=== PATIENT | male | born 1950 | race Caucasian/White ===

== ENCOUNTER → 2017-09-09 10:00 | Outpatient (CLI) | payer MEDICARE, SELFPAY ==
[2017-09-09 10:57] LABS: Hematocrit 35.1 % (40-54); Hemoglobin 12.2 g/dl (13.0-16.5); Mean Corp Hgb Conc 34.8 g/gl (32-36); Mean Corpuscular Volume 83.6 fL (80-94); Mean Platelet Vol. 8.8 fl (6.2-12.0); Platelet Count 247 K/mm3 (150-450); RBC Distribution Width CV 13.4 % (11.6-14.6); RBC Distribution Width SD 39.9 fl (35.1-43.9); White Blood Count 9.4 K/mm3 (4.4-11.0)
[2017-09-09 11:07] LABS: Scan Indicated on CBC? Y/N NO
[2017-09-09 11:16] LABS: Albumin, Serum 3.1 g/dL (3.2-5.0); BUN 42 mg/dL (7-18); BUN/Creat Ratio 13.9 RATIO (10-20); Chloride 102 mmol/L (98-107); Creatinine, Serum 3.02 mg/dL (0.70-1.30); EST Glomerular Filtration Rate 22 mL/min (>60); Est Glom Filt Rate - Afr Amer 27 mL/min (>60); Glucose 285 mg/dL (74-106); Phosphorus 3.2 mg/dL (2.5-4.9); Potassium 4.5 mmol/L (3.5-5.1); Sodium Level 136 mmol/L (136-145)
[2017-09-09 12:11] LABS: Creat.Clear Total Volume 2600 mL; Creatinine Clearance 29 ml/min (100-200); Creatinine Urine 48.8 mg/dL (NO RANGE EST.); EST Glomerular Filtration Rate 22 mL/min (>60); Est Glom Filt Rate - Afr Amer 27 mL/min (>60)
[2017-09-09 13:05] LABS: 24HR. UA Prot. Total Volume 2600 mL; Urine Protein (24 Hour) 125.6 mg/dL (<11.9)
== END ==
PROVIDERS: Family Provider Family Medicine; PCP Family Medicine; Visit Provider Internal Medicine Nephrology
DX: N18.4 Chronic kidney disease, stage 4 (severe) (principal); R80.9 Proteinuria, unspecified
CPT/HCPCS: 36415; 80069; 82575; 84156; 85027

== ENCOUNTER → 2018-01-06 09:15 | Outpatient (CLI) | payer MEDICARE, SELFPAY ==
[2018-01-06 10:18] LABS: Hematocrit 36.1 % (40-54); Hemoglobin 12.1 g/dl (13.0-16.5); Mean Corp Hgb Conc 33.5 g/gl (32-36); Mean Corpuscular Volume 83.6 fL (80-94); Mean Platelet Vol. 9.1 fl (6.2-12.0); Platelet Count 242 K/mm3 (150-450); RBC Distribution Width CV 13.1 % (11.6-14.6); RBC Distribution Width SD 39.6 fl (35.1-43.9); Red Blood Count 4.32 M/mm3 (4.6-6.2); Scan Indicated on CBC? Y/N NO; White Blood Count 9.2 K/mm3 (4.4-11.0)
[2018-01-06 11:03] LABS: Albumin, Serum 3.1 g/dL (3.2-5.0); BUN 39 mg/dL (7-18); BUN/Creat Ratio 12.6 RATIO (10-20); Calcium,Total 8.7 mg/dL (8.5-10.1); Chloride 103 mmol/L (98-107); EST Glomerular Filtration Rate 21 mL/min (>60); Est Glom Filt Rate - Afr Amer 26 mL/min (>60); Glucose 255 mg/dL (74-106); Phosphorus 3.3 mg/dL (2.5-4.9); Potassium 5.1 mmol/L (3.5-5.1); Sodium Level 136 mmol/L (136-145)
[2018-01-06 11:06] LABS: PTHIN 50.5 pg/mL (18.4-80.1)
[2018-01-06 11:08] LABS: Vitamin D,25 Hydroxy 19.5 ng/mL (29.95-100.01)
== END ==
PROVIDERS: Family Provider Family Medicine; PCP Family Medicine; Visit Provider Internal Medicine Nephrology
DX: E55.9 Vitamin D deficiency, unspecified (principal); N18.4 Chronic kidney disease, stage 4 (severe)
CPT/HCPCS: 36415; 80069; 82306; 83970; 85027

== ENCOUNTER → 2018-04-11 09:56 | Outpatient (CLI) | payer MEDICARE, SELFPAY ==
[2018-04-11 10:37] LABS: Hematocrit 37.3 % (40-54); Hemoglobin 12.6 g/dl (13.0-16.5); Mean Corp Hgb Conc 33.8 g/gl (32-36); Mean Corpuscular Hgb 28.2 pg (27.0-32.0); Mean Corpuscular Volume 83.4 fL (80-94); Platelet Count 272 K/mm3 (150-450); RBC Distribution Width CV 13.5 % (11.6-14.6); RBC Distribution Width SD 40.2 fl (35.1-43.9); Red Blood Count 4.47 M/mm3 (4.6-6.2); Scan Indicated on CBC? Y/N NO; White Blood Count 10.2 K/mm3 (4.4-11.0)
[2018-04-11 11:20] LABS: Albumin, Serum 3.4 g/dL (3.2-5.0); BUN 41 mg/dL (7-18); BUN/Creat Ratio 12.9 RATIO (10-20); Chloride 102 mmol/L (98-107); Creatinine, Serum 3.17 mg/dL (0.70-1.30); EST Glomerular Filtration Rate 21 mL/min (>60); Est Glom Filt Rate - Afr Amer 25 mL/min (>60); Glucose 156 mg/dL (74-106); Phosphorus 2.9 mg/dL (2.5-4.9); Potassium 4.5 mmol/L (3.5-5.1); Sodium Level 135 mmol/L (136-145)
[2018-04-11 11:21] LABS: PTHIN 43.5 pg/mL (18.4-80.1)
== END ==
PROVIDERS: Family Provider Family Medicine; PCP Family Medicine; Referring Provider Internal Medicine Nephrology; Visit Provider Internal Medicine Nephrology
DX: N18.4 Chronic kidney disease, stage 4 (severe) (principal)
CPT/HCPCS: 36415; 80069; 83970; 85027

== ENCOUNTER → 2018-07-10 07:55 | Outpatient (CLI) | payer MEDICARE, SELFPAY ==
[2018-07-10 08:20] LABS: Hemoglobin 12.4 g/dl (13.0-16.5); Mean Corp Hgb Conc 33.5 g/gl (32-36); Mean Corpuscular Hgb 27.7 pg (27.0-32.0); Mean Corpuscular Volume 82.8 fL (80-94); Mean Platelet Vol. 8.9 fl (6.2-12.0); Platelet Count 251 K/mm3 (150-450); RBC Distribution Width CV 13.5 % (11.6-14.6); Red Blood Count 4.47 M/mm3 (4.6-6.2)
[2018-07-10 08:22] LABS: Scan Indicated on CBC? Y/N NO
[2018-07-10 08:55] LABS: Albumin, Serum 3.2 g/dL (3.2-5.0); BUN 35 mg/dL (7-18); Calcium,Total 9.1 mg/dL (8.5-10.1); Chloride 106 mmol/L (98-107); Creatinine, Serum 2.92 mg/dL (0.70-1.30); EST Glomerular Filtration Rate 23 mL/min (>60); Est Glom Filt Rate - Afr Amer 28 mL/min (>60); Glucose 87 mg/dL (74-106); Phosphorus 3.6 mg/dL (2.5-4.9); Potassium 4.5 mmol/L (3.5-5.1); Sodium Level 138 mmol/L (136-145)
[2018-07-10 09:05] LABS: PTHIN 38.1 pg/mL (18.4-80.1)
== END ==
PROVIDERS: Family Provider Family Medicine; PCP Family Medicine; Referring Provider Internal Medicine Nephrology; Visit Provider Internal Medicine Nephrology
DX: N18.4 Chronic kidney disease, stage 4 (severe) (principal)
CPT/HCPCS: 36415; 80069; 83970; 85027

== ENCOUNTER → 2018-08-20 09:57 | Outpatient (CLI) | payer MEDICARE, SELFPAY ==
[2018-08-20 12:08] LABS: Albumin, Serum 2.8 g/dL (3.2-5.0); BUN 50 mg/dL (7-18); BUN/Creat Ratio 17.2 RATIO (10-20); Calcium,Total 8.7 mg/dL (8.5-10.1); Chloride 105 mmol/L (98-107); Creatinine, Serum 2.91 mg/dL (0.70-1.30); EST Glomerular Filtration Rate 23 mL/min (>60); Est Glom Filt Rate - Afr Amer 28 mL/min (>60); Glucose 182 mg/dL (74-106); Phosphorus 3.2 mg/dL (2.5-4.9); Potassium 4.6 mmol/L (3.5-5.1); Sodium Level 139 mmol/L (136-145)
== END ==
PROVIDERS: Family Provider Family Medicine; PCP Family Medicine; Referring Provider Internal Medicine Nephrology; Visit Provider Internal Medicine Nephrology
DX: N18.4 Chronic kidney disease, stage 4 (severe) (principal)
CPT/HCPCS: 36415; 80069

== ENCOUNTER → 2018-10-07 09:45 | Outpatient (CLI) | payer MEDICARE, SELFPAY ==
[2018-10-07 10:57] LABS: Hematocrit 37.4 % (40-54); Hemoglobin 11.9 g/dl (13.0-16.5); Mean Corp Hgb Conc 31.8 g/gl (32-36); Mean Corpuscular Hgb 26.8 pg (27.0-32.0); Mean Corpuscular Volume 84.2 fL (80-94); Mean Platelet Vol. 8.7 fl (6.2-12.0); Platelet Count 249 K/mm3 (150-450); RBC Distribution Width CV 14.2 % (11.6-14.6); RBC Distribution Width SD 44.3 fl (35.1-43.9); Red Blood Count 4.44 M/mm3 (4.6-6.2); White Blood Count 9.4 K/mm3 (4.4-11.0)
[2018-10-07 10:59] LABS: Scan Indicated on CBC? Y/N NO
[2018-10-07 11:23] LABS: Albumin, Serum 2.7 g/dL (3.2-5.0); BUN 28 mg/dL (7-18); BUN/Creat Ratio 10.9 RATIO (10-20); Calcium,Total 8.7 mg/dL (8.5-10.1); Chloride 106 mmol/L (98-107); Creatinine, Serum 2.57 mg/dL (0.70-1.30); EST Glomerular Filtration Rate 27 mL/min (>60); Est Glom Filt Rate - Afr Amer 32 mL/min (>60); Glucose 224 mg/dL (74-106); Potassium 4.3 mmol/L (3.5-5.1); Sodium Level 138 mmol/L (136-145)
[2018-10-07 11:26] LABS: PTHIN 28.1 pg/mL (18.4-80.1)
== END ==
PROVIDERS: Family Provider Family Medicine; PCP Family Medicine; Referring Provider Internal Medicine Nephrology; Visit Provider Internal Medicine Nephrology
DX: N18.4 Chronic kidney disease, stage 4 (severe) (principal)
CPT/HCPCS: 36415; 80069; 83970; 85027

== ENCOUNTER → 2019-01-30 09:47 | Outpatient (CLI) | payer MEDICARE, SELFPAY ==
[2019-01-30 10:19] LABS: Hematocrit 38.8 % (40-54); Hemoglobin 12.7 g/dL (13.0-16.5); Mean Corp Hgb Conc 32.7 g/dL (32-36); Mean Corpuscular Hgb 27.5 pg (27.0-32.0); Mean Corpuscular Volume 84.2 fL (80-94); Mean Platelet Vol. 8.7 fl (6.2-12.0); Platelet Count 257 K/mm3 (150-450); RBC Distribution Width CV 14.4 % (11.6-14.6); RBC Distribution Width SD 43.9 fl (35.1-43.9); Red Blood Count 4.61 M/mm3 (4.6-6.2)
[2019-01-30 10:39] LABS: Protein:Creat Ratio 10336 mg/g CRE (0-200)
[2019-01-30 10:58] LABS: Albumin, Serum 2.3 g/dL (3.2-5.0); BUN 31 mg/dL (7-18); BUN/Creat Ratio 9.4 RATIO (10-20); Calcium,Total 8.7 mg/dL (8.5-10.1); Chloride 108 mmol/L (98-107); EST Glomerular Filtration Rate 20 mL/min (>60); Est Glom Filt Rate - Afr Amer 24 mL/min (>60); Glucose 221 mg/dL (74-106); Phosphorus 3.4 mg/dL (2.5-4.9); Potassium 4.8 mmol/L (3.5-5.1); Sodium Level 134 mmol/L (136-145)
[2019-01-30 11:05] LABS: PTHIN 48.8 pg/mL (18.4-80.1)
== END ==
PROVIDERS: Family Provider Family Medicine; PCP Family Medicine; Referring Provider Internal Medicine Nephrology; Visit Provider Internal Medicine Nephrology
DX: E11.22 Type 2 diabetes mellitus with diabetic chronic kidney disease (principal); N18.4 Chronic kidney disease, stage 4 (severe); D63.1 Anemia in chronic kidney disease
CPT/HCPCS: 36415; 80069; 82570; 83970; 84156; 85027

== ENCOUNTER → 2019-03-12 11:27 | Outpatient (CLI) | payer MEDICARE, SELFPAY ==
[2019-03-12 10:30] VITALS: BMI 33.0
[2019-03-12 13:05] LABS: Albumin, Serum 2.2 g/dL (3.2-5.0); BUN 36 mg/dL (7-18); BUN/Creat Ratio 10.1 RATIO (10-20); Calcium,Total 8.4 mg/dL (8.5-10.1); Chloride 110 mmol/L (98-107); Creatinine, Serum 3.56 mg/dL (0.70-1.30); EST Glomerular Filtration Rate 18 mL/min (>60); Est Glom Filt Rate - Afr Amer 22 mL/min (>60); Glucose 183 mg/dL (74-106); Potassium 4.8 mmol/L (3.5-5.1); Sodium Level 142 mmol/L (136-145)
== END ==
PROVIDERS: Family Provider Family Medicine; PCP Family Medicine; Referring Provider Internal Medicine Nephrology; Visit Provider Internal Medicine Nephrology
DX: N18.4 Chronic kidney disease, stage 4 (severe) (principal)
CPT/HCPCS: 36415; 80069

== ENCOUNTER → 2019-03-19 11:47 | Outpatient (CLI) | payer MEDICARE, SELFPAY ==
[2019-03-12 10:30] VITALS: BMI 33.0
--- NOTE | 2019-03-19 12:09 | PCM.CR.HP2 ---
CR - History & Physical - General Arrival date:: 03/19/19 Arrival time:: 11:50 Date of Referral:: 03/12/19 Date of CR Evaluation:: 03/19/19 Referring Physician: DR. ALTAGRACIA BERRIOS Primary Diagnosis: CABG - History of Present Cardiac Event Onset Date: Enter Onset Date of cardiac illnesses in Comment field below Acute Myocardial Infarction within 12 months:: Yes - 2000 Coronary Artery Bypass Graft:: Yes - 08/08/2018 PTCA or coronary stenting:: Yes - 2000 PCI W/CORONARY STENT X 2 Type of Symptoms:: FELT NOTHING, SUPERVISOR OF COMMUNICATIONS AT [facility] SHOWED HIM ONE CORONARY ARTERY WAS SO NARROWN SURPRISED HE FELT NO PAIN. Were there any complications?: HAD ISSUES WITH GETTING BLOOD PRESSURES BACK UP, TRANSFUSED TWO PINTS BLOOD - Medications Home Medications: Ambulatory Orders Medication Instructions Recorded Aspirin [Aspirin, Baby] 81 mg PO DAILY@0800 07/06/16 Clopidogrel Bisulfate [Plavix] 75 mg PO DAILY 07/06/16 doxazosin 4 mg tablet 4 mg PO QHS tab 01/16/18 cholecalciferol (vitamin D3) 1,000 1,000 unit PO DAILY 02/06/19 unit (25 mcg) tablet metoprolol succinate ER 100 mg 100 mg PO .COMPLEX 02/06/19 tablet,extended release 24 hr pantoprazole 20 mg tablet,delayed 20 mg PO DAILY 02/06/19 release glimepiride 1 mg tablet 1 mg PO .COMPLEX 03/10/19 amlodipine 2.5 mg tablet 2.5 mg PO DAILY #30 tab 03/12/19 lisinopril 5 mg tablet 2.5 mg PO QDAY tab 03/12/19 omega-3 fatty acids 1,000 mg 1,000 mg PO DAILY 03/12/19 capsule rosuvastatin 10 mg tablet 10 mg PO DAILY 03/12/19 sitagliptin 25 mg tablet 25 mg PO DAILY 03/12/19 Atorvastatin Calcium [Lipitor] 80 mg PO QHS 03/19/19 Fenofibric Acid (Choline) 135 mg PO 03/19/19 [Trilipix] Magnesium Oxide [Mag-Oxide 400 mg PO 03/19/19 Magnesium] Sitagliptin Phosphate [Januvia] 25 mg PO DAILY 03/19/19 - Allergies Allergies/Adverse Reactions: Allergies Sulfa (Sulfonamide Antibiotics) Allergy (Severe, Verified 03/12/19 10:30) Rash clonidine Adverse Reaction (Severe, Verified 03/12/19 10:30) sedation - Sleep Disorder Evaluation Hx of Sleep Apnea: Yes Do you snore loudly (louder than talking or can be heard through closed doors)?: Yes Do you often feel tired/ fatigued/ sleepy during daytime?: Yes Has anyone observed you stop breathing during sleep?: Yes History of Hypertension (for STOP score): Yes STOP Results: Positive Advanced Directives - Advanced Directives Power of Program Trainer: Yes Living Will: Yes Advance Directives Information Provided: No Advance Directives on File: No - PATIENT IS NOT SURE IF THEY ARE ON FILE OR NOT. DNR Order?:: No - MOLST See MOLST form: No Past Medical History - Past Medical Illness Medical History: Past Medical History (Last Reviewed 03/12/19 @ 10:34 by Lizzie Phillips) Mixed hyperlipidemia (Chronic) E78.2 CKD (chronic kidney disease) stage 4, GFR 15-29 ml/min (Chronic) N18.4 Type 2 diabetes mellitus (Chronic) E11.9 Essential hypertension (Chronic) I10 Atherosclerotic heart disease of [place] coronary artery without angina pectoris (Chronic) I25.10 History of left heart catheterization (LHC) Onset Date: ~2000 Z98.890 PCI/stent x2 2000 TIA (transient ischemic attack) G45.9 - Past Surgical History Surgical History: Past Surgical History (Last Reviewed 03/12/19 @ 10:34 by Lizzie Phillips) History of coronary artery bypass surgery (Chronic) Onset Date: ~08/08/18 Z95.1 CABG x3- HILTON to LAD, SVG to PDA, SVG to Diag 1 History of toe surgery Z98.890 Lt great toe repair History of tonsillectomy Z90.89 - Family History Summary Family History: Family History (Last Reviewed 03/12/19 @ 10:34 by Lizzie Phillips) Mother Hypertension Father Congestive heart failure Social History - Smoking History Smoking Status: Former smoker Years Smokin Packs Smoked per Day: 2 Hx Smoking Cessation Date: 1992 Hx Tobacco Use: Yes Hx Smoking Exposure: No - Alcohol Use Alcohol Usage: No - Substance Abuse Hx Substance Use: No - Occupation Occupation (List type of work in comments):: Retired - Hobbies, Recreation, Social Activities Hobbies: Watch TV, Other - tv Recreational Activities: I am able to engage in most, but not all activities Social Environment - Status Marital Status: - Current Living Arrangements Living Environment:: Spouse - Children How many children do you have?: 2 Do any of your children live nearby?: Yes - GERRY AND KATHY - Safety Do you feel safe in your surroundings?: Yes - Assistance Do you need any assistance at home?: NONE Review of Systems - Review of Systems Hints: Right click = Denies (Slash). Left click = Reports ([place]) Review of Present Symptoms: Reports: Shortness of Breath with Exertion - AT TIMES CAN FEEL THE PRESSURE OF SHORTNESS OF BREATH DEPENDING ON THE ACTIVITY INVOLVED, Wound Healing, Fatigue, Appetite - Normal, Appetite - Special Diet - NO SATURATED FATS, NO SODIUM, LOWER ADDED SUGAR INTAKE. Denies: Shortness of Breath at Rest, Operative Discomfort, Angina, Dizziness/Lightheadedness - Pain Is Patient Pain Free?: Yes Pain Location: none Pain Level: 0/10 Risk Factor Assessment - Chief Complaint Chief Complaint: PATIENT IS A PLEASENT 68 YR OLD MALE PATIENT OF DR. BERRIOS WHO PRESENTS TO CARDIAC REHAB TODAY FOLLOWING RECENT CABG X 3 AT THE [facility] ON 08/08/2018. - Vital Signs Temperature: 98.7 F Respiratory Rate: 14 Pulse Ox: 95 Blood Pressure: 128/78 - Pulse Pulse Rate: 68 Pulse Rhythm: Regular - Hypertension How long have you been treated?: SINCE FIRST HEART ATTACK IF NOT BEFORE THAT 2000. Blood Pressure Sitting - Left Arm: 128/78 - Stress Stress: Recent - Blood Cholesterol/Lipids Total Cholesterol (mg/dL) Goal = less than 200 mg/dL: 0 - NOT AVAILABLE - Diabetes Diabetic History: Type II, Medication Dependent Nutrition Referral for Diabetes: Yes - Obesity Height: 5 ft 11 in Weight:: 232 lb 6.4 oz Weight in Pounds: 232.4 lbs Weight Source: Standing Scale Body Mass Index (BMI): 32.4 Nutritional Referral for Obesity: Yes - Physical Inactivity Physical Inactivity: None - SEDENTARY LIFESTYLE ONLY WALKS AROUND INSIDE THE HOUSE; MOWS GRASS ON RIDING TRACTOR - Risk Stratification Risk Guidelines: Lowest Risk: Risk Factor for Smoking, Risk Factor for Diabetes - CURRENT A1C OR GLUCOSE CHEISTRY NOT AVAILABLE, Risk Factor for Hypertension, Risk Factor for Depression, Moderate Risk: Risk Factor for Dyslipidemia, Highest Risk: Risk Factor for Obesity, Risk Factor for Sedentary Lifestyle - For Smoking Smoking Risk Guidelines: Smoking Low Risk: None or quit greater than 6 months ago. Smoking Moderate Risk: Smoker or quit 6 months or less ago. Smoking High Risk: Smoker - For Dyslipidemia Dyslipidemia Risk Guidelines: Low Risk: Moderate Risk: High Risk: 15-25% fat 25.1-29% fat >/= 30% fat. <7% sat fat 7-9% sat fat >9% sat fat. <150 mg chol 150-299 mg chol >/= 300 mg chol. LDL <100 LDL 100-129 LDL >/= 130. Chol/HDL ratio <5.0 Chol/HDL ratio 5.0-6.0 Chol/HDL ratio >6.0. Triglycerides <100 Triglycerides 100-149 Triglycerides >/= 150 - For Diabetes Mellitus Diabetes Risk Guidelines: Diabetes Low Risk: HgA1c <6.5% and/or FBG <120. Diabetes Moderate Risk: HgA1c 6.6-7.9% and/or FBG 120-180. Diabetes High Risk: HgA1c >/= 8% and/or FBG >180 - For Obesity/Overweight Obesity/Overweight Risk Guidelines: Obesity Low Risk: BMI <25.0. Obesity Moderate Risk: BMI 25-29.9. Obesity High Risk: BMI >/= 30.0 - For Hypertension Hypertension Risk Guidelines: Hypertension Low Risk: Systolic <120 and Diastolic <80. Hypertension Moderate Risk: Systolic 120-139 and Diastolic 80-89. Hypertension High Risk: Systolic >/= 140 and Diastolic >/= 90 - For Sedentary Lifestyle Sedentary Lifestyle Risk Guidelines: Sedentary Lifestyle Low Risk: >/= 1,500 kcal/week. Sedentary Lifestyle Moderate Risk: 700-1,499 kcal/week. Sedentary Lifestyle High Risk: < 700 kcal/week - For Depression Depression Risk Guidelines: Depression Low Risk: Not clinically depressed. Depression Moderate Risk: Mildly depressed. Depression High Risk: Clinically depressed - Family History Family History: Family History (Last Reviewed 03/12/19 @ 10:34 by Lizzie Phillips) Mother Hypertension Father Congestive heart failure Motivation - Motivation to Participate On a scale of 1 to 10, how prepared are you to commit to attending program?: 5 - DID PROGRAM AT [facility] DIDNT CARE FOR THE PROGRAM OR THE RN THERE. NOT REAL EXCITED ABOUT IT BUT WILL GIVE IT A TRY. What do you see as the benefits of succesfully completing the program? In other words, what do you hope to get out of participating in the program?: LOWERING THE BLOOD PRESSURE Are there issues you are dealing with that will interfere with completing the program?: INCREASE BLOOD PRESSURE Do you have a spouse or signficant other, family or friends who will help support you to complete the program?: YES
--- NOTE | 2019-03-19 12:10 | CR.ITP_ITS ---
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 Waist Circumference >35/Females >40/Males, Hypertension, Sedentary Lifestyle Cardiac Rehabilitation Goals: 1. Maintain the individual as the primary focus of care. 2. To improve the patient's quality of life. 3. Identification of cardiac risk factors and provide cardiac risk factor management. 4. Enhance the psychosocial status of the patient. 5. Reconditioning enough to allow the patient to resume customary activities. 6. Control symptoms of cardiac disease Scale for measuring improvement of personal goals: Enter appropriate number in Comments. 2 = Unchanged. 3 = Slightly Better. 4 = Moderate Improvement. 5 = Met my Goal Personal Goals: Initial Assessment: Improve energy level, Improve muscle strength and endurance, Improve diet and eating habits (eat healthier), Control risk factors (learn risk factor modification) Exercise - Initial Assessment - Visit Date of Eval: 03/19/19 - Stages of Change Stages of Change:: Contemplate, Action - Physician Prescribed Exercise Modalities: Treadmill - NOT CRAZY ABOUT TREADMILLS; HAS FREQUENT PANIC ATTACKS WITH INCREASED ELEVATION/SPEED DUE TO HIS CA AFTER STRESS TEST, Dharmesh Spear [employer], [employer] Frequency (days/week): 3x/week for 12 weeks [36 sessions] Duration (Minutes):: 30-45 Intensity: 60-80% age predicted maximum heart rate reserve METs - Progression: 0.5-1.0 MET, RPE 11-14 WEEK: 2.5 Target Heart Rate:: 99-129 - Hypertension Do any of the following apply?: Yes, Medication - Intervention Home Exercise/Activity Goal:: Moderate Exercise 30 min/day x 5 days/wk - Education Goals:: Warm-up, RPE DAT Scale, S/S, Safe Exercise, Self-Monitoring - Exercise Program Goals Exercise Program Goals: Aerobic Activity >30 min Nutrition - Initial Assessment - Program Goals Nutrition Program Goals: LDL <70. Total Cholesterol <200. HDL >45. Triglycerides <150. HgbA1C <7%. BMI <25 - Visit Date of Assessment:: 03/19/19 - Stages of Change Stages of Change:: Contemplate, Action - Lipids Total Cholesterol (mg/dL) Goal = less than 200 mg/dL: 0 - NOT AVAILABLE - Diabetes Diabetes:: Yes Insulin: No Non-Insulin Dependent?: No Do you monitor your blood sugar at home?: Yes - Weight Management Height: 5 ft 11 in Weight:: 232 lb 6.4 oz - Intervention Referral to dietitian:: Yes Referral to Diabetic Clinic:: Yes Will attend diet classes:: Yes - Education Gave educational materials for:: Signs & symptoms of hypoglycemia, Signs & symptoms of hyperglycemia, Relate diabetes to coronary artery disease, Healthy eating Tobacco - Initial Assessment - Program Goals Tobacco Program Goals: Complete smoking cessation. Attend education classes. Improve Knowledge Test score - Stage of Change Stages of Change:: Contemplate, Action - Learning Barriers Learning Barriers: Hearing, Vision - Family Support Do you have family support?: No - Tobacco Use Tobacco Use: Non-smoker Do you use smokeless tobacco?: No - Intervention Smoking Cessation Referral:: No Individual Education/Counseling:: No Education Schedule Given:: Yes - Education Attended class for:: Treating Heart Disease, How The Heart Works, What it means to have Heart Disease, How Coronary Artery Disease is Diagnosed, Heart Procedures, What Heart Medications Do, Risk Factors & Modifications, Living an Active Life, Nutrition, Emotions & Heart Disease, Stress Management & Relaxation, Sleep Disorders & Heart Disease Psychosocial - Initial Assess - Target Goals Target Goals: Assess presence or absence of depression. Using a valid screening tool, maximizes coping skills. Positive support system - Stages of Change Stages of Change:: Action - Psychosocial Test Tool Used:: HANDS Depression Questionnaire - Intervention PS - Interventions: Yes Attend Stress Management Classes, No Referral to Mental Health, No Referral to [facility] Case Management, No Referral to Physician, No Uses Stress Management Skills - Education Gave educational materials for:: Coping techniques, Signs & symptoms of depress ion, Stress management, Relaxation techniques - Patient/Program Goal Preventative Medication(s):: Aspirin, AI inhibitor, Clopidogrel, Beta rafael, Statin/lipid - Assistive Devices Assistive Devices:: None Fall Risk Assessed:: Yes Patient Health Questionnaire Initial Assessment 1. Little interest or pleasure in doing things: Several days 2. Feeling down, depressed, or hopeless: Not at all 3. Trouble falling or staying asleep, or sleeping too much: Not at all 4. Feeling tired or having little energy: Several days 5. Poor appetite or overeating: Not at all 6. Feeling bad about yourself -- or that you are a failure or have let yourself or your family down: Not at all 7. Trouble concentrating on things, such as reading the newspaper or watching television: Not at all 8. Moving or speaking so slowly that other people could have noticed. Or the opposite - being so fidgety or restless that you have been moving around a lot more than usual: Not at all 9. Thoughts that you would be better off , or of hurting yourself in some way: Not at all How difficult have these problems made it for you to do your work, take care of things at home, or get along with other people?: Not difficult at all Total Score: 2 CHANTALE-Q SV Test - Statements CAD is a disease of the arteries in the heart: False Examples of risk factors for heart disease: True Angina is chest pain or discomfort: True The benefits of resistance training include: True Eating more meat and dairy products: False Anti-platelet medications such as aspirin are important: True The only effective way to manage stress: False An exercise warm-up slowly increases heart rate: True Prepared, processed foods usually have high sodium: True Depression is common after a heart attack: I Don't Know The statin medications lower cholesterol: True To control blood pressure, lower the amount of sodium: True If someone gets chest discomfort during walking: False Transfats are partially hydrogenated vegetable oils: False Sleep apnea that is not treated increases the risk: I Don't Know To control cholesterol, one should become a vegetarian: False Someone knows if he/she is exercising at the right level: I Don't Know Diabetes cannot be prevented with exercise & health eating: False Stress is a large risk for heart attack: I Don't Know A diet that can help lower blood pressure is rich in: True - Total Score Total Correct Responses: 15 Self-Efficacy Initial Assessment We would like to know how confident you are in doing certain activities. Please select your confidence level for:: Select your confidence level for the following using the scale 1-10 where 1 is not at all confident and 10 is totally confident. Your score is the average of all 6 responses. Fatigue: How confident are you that you can keep the fatigue caused by your disease from interfering with the things you want to do? Select Number: 4 Physical Discomfort or Pain: How confident are you that you can keep the physical discomfort or pain of your disease from interfering with the things you want to do? Select Number: 4 Emotional Distress: How confident are you that you can keep the emotional distress caused by your disease from interfering with the things you want to do? Select Number: 5 Other Symptoms or Health Problems: How confident are you that you can keep other symptoms or health problems from interfering with the things you want to do? Select Number: 5 Different Tasks and Activities: How confident are you that you can do the different tasks and activities needed to manage your health condition so as to reduce your need to see a doctor? Select Number: 6 Medication: How confident are you that you can do things other than just taking medication to reduce how much your illness affects your everyday life? Select Number: 6 Total Score:: 5 Nutrition Survey - Nutrition Survey Instructions Scoring Instructions: Scoring is as follows: Yes = 1 points. No = 0 point. Patient score that is >/=12 is considered to be at potential nutritional risk and could benefit from a referral to a registered dietitian. - Nutrition Survey Initial Have you lost >10 lbs over the past 2 months without trying?: No Are you following a special diet at home for diabetes, low fat, or low salt?: Yes Are you interested in meeting with a dietitian for help understanding your diet?: Yes Do you eat less than 3 meals a day?: Yes Do you eat fatty meats (chapa, sausage, ribs, etc), fried foods, desserts, large amounts of salad dressings, margarine, butter, or cheese most days?: Yes Do you have food allergies? [Enter types in comment field]: No Do you eat in restaurants more than 3 times a week?: No Do you season food with salt, seasoning salt, or garlic salt?: No Do you used canned, boxed, frozen meals, or soups, seasoning packets?: Yes - DM TYPE II, EXTENSIVE CAD, RENAL DISEASE STAGE 4. Total Score:: 5
[2019-03-19 12:30] VITALS: BP 128/78; PULSE 68; RESP 14; TEMP 37.1; O2SAT 95; BMI 32.4
== END ==
PROVIDERS: Family Provider Family Medicine; PCP Family Medicine; Referring Provider Internal Medicine Cardiovascular Disease; Visit Provider Internal Medicine Cardiovascular Disease
DX: I25.10 Atherosclerotic heart disease of native coronary artery without angina pectoris (principal); E78.2 Mixed hyperlipidemia; E11.22 Type 2 diabetes mellitus with diabetic chronic kidney disease; N18.4 Chronic kidney disease, stage 4 (severe)

== ENCOUNTER 2019-04-01 09:52 | Outpatient (RCR) | payer MEDICARE, SELFPAY ==
[2019-03-19 12:30] VITALS: BMI 32.4
== END 2019-04-06 23:59 ==
LOC: DC 09:52
PROVIDERS: Family Provider Family Medicine; PCP Family Medicine; Visit Provider Internal Medicine Cardiovascular Disease
DX: E11.9 Type 2 diabetes mellitus without complications (principal); E78.2 Mixed hyperlipidemia; I25.10 Atherosclerotic heart disease of native coronary artery without angina pectoris; N18.4 Chronic kidney disease, stage 4 (severe); Z71.3 Dietary counseling and surveillance
CPT/HCPCS: G0108

== ENCOUNTER → 2019-04-02 13:31 | Outpatient (CLI) | payer MEDICARE, SELFPAY ==
[2019-03-12 10:30] VITALS: BMI 33.0
[2019-03-19 12:30] VITALS: BMI 32.4
--- NOTE | 2019-04-02 13:00 | ECHOCS_ITS ---
Reason For Study: S/P CABG Procedure This was a 2D Doppler, Color Flow transthoracic echocardiogram. The study was technically difficult. Due to diminished accoustic windows. Contrast injection was performed. Left Ventricle Normal LV size. Mild concentric left ventricular hypertrophy. Left ventricular systolic function is normal. The estimated ejection fraction is 55 %. Diastolic function is indeterminate. No regional wall motion abnormalities noted. Right Ventricle Normal RV size. Normal systolic function. Atria Normal left atrium. Normal right atrium. No doppler evidence for ASD. Mitral Valve There is no mitral annular calcification. Normal mitral valve. Trivial mitral valve insufficiency. Tricuspid Valve Normal tricuspid valve. Trivial tricuspid valve insufficiency. Unable to estimate RV systolic pressure/pulmonary artery pressure due to technically difficult study. Aortic Valve Trisinus/trileaflet aortic valve. Normal aortic valve. Pulmonic Valve The pulmonic valve is not well visualized. Great Vessels Normal sized aortic root. Pericardium/Pleural No pericardial effusion. Medication 22 gauge I.V. with prn adaptor inserted into right arm. Diluted definity 3.0ml given slow IV push to enhance endocardial definition. MMode/2D Measurements & Calculations LVIDd: 4.4 cm IVSd: 1.6 cm Ao root diam: 3.3 cm LVIDs: 2.6 cm LVPWd: 1.3 cm RVDd: 3.1 cm FS: 41.2 % LAV(MOD-bp): 46.3 ml LA A4 area: 17.4 cm2 LA dimension(2D): 4.1 cm LAV(MOD-bp) Indexed: 20.6 ml/m2 LAV(MOD-sp2): 46.8 ml LAV(MOD-sp4): 45.8 ml RA A4 area: 16.2 cm2 Time Measurements MV dec time: 0.21 sec Doppler Measurements & Calculations MV E max joseph: 74.4 cm/sec Lat Peak E' Joseph: 8.1 cm/sec Med Peak E' Joseph: 7.0 cm/sec MV A max joseph: 87.3 cm/sec E/E' lat: 9.2 E/E' med: 10.7 MV E/A: 0.85 Ao V2 max: 131.2 cm/sec LV V1 max: 104.4 cm/sec PA V2 max: 134.9 cm/sec Ao max P.9 mmHg LV V1 max P.4 mmHg Interpretation Summary The study was technically difficult. Contrast injection was performed. Left ventricular systolic function is normal. The estimated ejection fraction is 55 %. Mild concentric left ventricular hypertrophy. Trivial mitral valve insufficiency. Trivial tricuspid valve insufficiency. Unable to estimate RV systolic pressure/pulmonary artery pressure due to technically difficult study. Diastolic function is indeterminate. Ordering Physician: Jack Delgado Referring Physician: Santosh Tavarez Performed By: Hafas Lopez RDCS, RVT
== END ==
PROVIDERS: Family Provider Family Medicine; PCP Family Medicine; Referring Provider Internal Medicine Cardiovascular Disease; Visit Provider Internal Medicine Cardiovascular Disease
DX: Z95.1 Presence of aortocoronary bypass graft (principal); I25.10 Atherosclerotic heart disease of native coronary artery without angina pectoris; I12.9 Hypertensive chronic kidney disease with stage 1 through stage 4 chronic kidney disease, or unspecified chronic kidney disease; E11.22 Type 2 diabetes mellitus with diabetic chronic kidney disease; N18.4 Chronic kidney disease, stage 4 (severe); E78.2 Mixed hyperlipidemia
CPT/HCPCS: 93306; Q9957; A4216; C8929

== ENCOUNTER 2019-04-20 09:55 | Outpatient (RCR) | payer MEDICARE, SELFPAY ==
[2019-03-19 12:30] VITALS: BMI 32.4
== END 2019-05-07 23:59 ==
LOC: DC 09:55
PROVIDERS: Family Provider Family Medicine; PCP Family Medicine; Visit Provider Internal Medicine Cardiovascular Disease
DX: E11.9 Type 2 diabetes mellitus without complications (principal); E78.2 Mixed hyperlipidemia; I25.10 Atherosclerotic heart disease of native coronary artery without angina pectoris; N18.4 Chronic kidney disease, stage 4 (severe)
CPT/HCPCS: 36415; 80069; 83970; 85027; 97802

== ENCOUNTER → 2019-04-20 10:50 | Outpatient (CLI) | payer MEDICARE, SELFPAY ==
[2019-03-12 10:30] VITALS: BMI 33.0
[2019-03-19 12:30] VITALS: BMI 32.4
[2019-04-20 11:27] LABS: Hematocrit 38.1 % (40-54); Hemoglobin 12.2 g/dL (13.0-16.5); Mean Corpuscular Hgb 27.2 pg (27.0-32.0); Mean Platelet Vol. 8.8 fl (6.2-12.0); Platelet Count 217 K/mm3 (150-450); RBC Distribution Width CV 13.7 % (11.6-14.6); RBC Distribution Width SD 42.4 fl (35.1-43.9); Red Blood Count 4.48 M/mm3 (4.6-6.2); White Blood Count 12.2 K/mm3 (4.4-11.0)
[2019-04-20 11:35] LABS: Albumin, Serum 2.1 g/dL (3.2-5.0); BUN 39 mg/dL (7-18); Calcium,Total 8.7 mg/dL (8.5-10.1); Chloride 111 mmol/L (98-107); Creatinine, Serum 4.32 mg/dL (0.70-1.30); EST Glomerular Filtration Rate 15 mL/min (>60); Est Glom Filt Rate - Afr Amer 18 mL/min (>60); Glucose 196 mg/dL (74-106); Phosphorus 4.7 mg/dL (2.5-4.9); Potassium 4.8 mmol/L (3.5-5.1); Sodium Level 141 mmol/L (136-145)
== END ==
LOC: LAB.FUTURE 10:53 → LAB 10:56
PROVIDERS: Family Provider Family Medicine; PCP Family Medicine; Referring Provider Internal Medicine Nephrology; Visit Provider Internal Medicine Nephrology
DX: N18.4 Chronic kidney disease, stage 4 (severe) (principal)
CPT/HCPCS: 36415; 80069; 83970; 85027

== ENCOUNTER → 2019-05-04 10:00 | Outpatient (CLI) | payer MEDICARE, SELFPAY ==
[2019-03-19 12:30] VITALS: BMI 32.4
[2019-05-04 10:41] LABS: 24HR. UA Prot. Total Volume 2900 mL
[2019-05-04 10:42] LABS: Urine Protein (24 Hour) 500.8 mg/dL (<11.9)
[2019-05-04 11:16] LABS: Albumin, Serum 2.1 g/dL (3.2-5.0); BUN 42 mg/dL (7-18); BUN/Creat Ratio 8.6 RATIO (10-20); Calcium,Total 8.7 mg/dL (8.5-10.1); Chloride 105 mmol/L (98-107); Creatinine, Serum 4.86 mg/dL (0.70-1.30); EST Glomerular Filtration Rate 13 mL/min (>60); Est Glom Filt Rate - Afr Amer 15 mL/min (>60); Glucose 223 mg/dL (74-106); Phosphorus 5.5 mg/dL (2.5-4.9); Potassium 4.9 mmol/L (3.5-5.1); Sodium Level 137 mmol/L (136-145)
[2019-05-04 11:17] LABS: Creat.Clear Total Volume 2900 mL; Creatinine Clearance 17 ml/min (100-200); Creatinine Serum Creat 4.9 mg/dL (0.8-1.3); Creatinine Urine 40.1 mg/dL (NO RANGE EST.); EST Glomerular Filtration Rate 13 mL/min (>60); Est Glom Filt Rate - Afr Amer 15 mL/min (>60)
[2019-05-04 11:19] LABS: Vitamin D,25 Hydroxy 21.7 ng/mL (29.95-100.01)
== END ==
LOC: LAB.FUTURE 10:02 → LAB 05-05 06:39
PROVIDERS: Family Provider Family Medicine; PCP Family Medicine; Referring Provider Internal Medicine Nephrology; Visit Provider Internal Medicine Nephrology
DX: N18.4 Chronic kidney disease, stage 4 (severe) (principal); D63.1 Anemia in chronic kidney disease; E55.9 Vitamin D deficiency, unspecified
CPT/HCPCS: 36415; 80069; 82306; 82575; 84156

== ENCOUNTER 2019-05-25 09:00 | Outpatient (RCR) | payer MEDICARE, SELFPAY ==
[2019-03-19 12:30] VITALS: BMI 32.4
[2019-05-21 08:38] VITALS: BMI 32.4
== END 2019-05-25 23:59 | disposition home or self-care (01) ==
LOC: DC 09:00
PROVIDERS: Family Provider Family Medicine; PCP Family Medicine; Visit Provider Internal Medicine Cardiovascular Disease
DX: Z71.3 Dietary counseling and surveillance (principal); E11.22 Type 2 diabetes mellitus with diabetic chronic kidney disease; N18.4 Chronic kidney disease, stage 4 (severe); I25.10 Atherosclerotic heart disease of native coronary artery without angina pectoris; E78.2 Mixed hyperlipidemia
CPT/HCPCS: G0108

== ENCOUNTER → 2019-05-28 12:34 | Outpatient (CLI) | payer MEDICARE, SELFPAY ==
[2019-05-21 08:38] VITALS: BMI 32.4
[2019-05-28 13:28] LABS: Hematocrit 36.4 % (40-54); Hemoglobin 12.1 g/dL (13.0-16.5); Mean Corp Hgb Conc 33.2 g/dL (32-36); Mean Corpuscular Hgb 27.9 pg (27.0-32.0); Mean Corpuscular Volume 84.1 fL (80-94); Platelet Count 215 K/mm3 (150-450); RBC Distribution Width CV 13.6 % (11.6-14.6); RBC Distribution Width SD 42.6 fl (35.1-43.9); Red Blood Count 4.33 M/mm3 (4.6-6.2)
[2019-05-28 13:29] LABS: Mean Platelet Vol. 8.7 fl (6.2-12.0); Scan Indicated on CBC? Y/N NO
[2019-05-28 13:39] LABS: Albumin, Serum 2.2 g/dL (3.2-5.0); BUN 70 mg/dL (7-18); BUN/Creat Ratio 12.7 RATIO (10-20); Calcium,Total 8.9 mg/dL (8.5-10.1); Chloride 111 mmol/L (98-107); Creatinine, Serum 5.52 mg/dL (0.70-1.30); EST Glomerular Filtration Rate 11 mL/min (>60); Est Glom Filt Rate - Afr Amer 13 mL/min (>60); Glucose 96 mg/dL (74-106); Phosphorus 5.9 mg/dL (2.5-4.9); Potassium 4.7 mmol/L (3.5-5.1); Sodium Level 140 mmol/L (136-145)
== END ==
PROVIDERS: Family Provider Family Medicine; PCP Family Medicine; Referring Provider Internal Medicine Nephrology; Visit Provider Internal Medicine Nephrology
DX: N18.4 Chronic kidney disease, stage 4 (severe) (principal); D63.1 Anemia in chronic kidney disease; E55.9 Vitamin D deficiency, unspecified
CPT/HCPCS: 36415; 80069; 85027

== ENCOUNTER 2019-06-02 07:03 | Day surgery (SDC) | payer MEDICARE, SELFPAY ==
[2019-05-21 08:38] VITALS: BMI 32.4
--- NOTE | 2019-05-21 10:05 | HP_ITS ---
Intake Vital Signs 05/21/19 Body Mass Index (BMI) 32.4 05/21/19 Height 5 ft 11 in 05/21/19 Weight: 233 lb 4 oz 05/21/19 Body Mass Index (BMI) 32.5 05/21/19 Blood Pressure 172/80 H 05/21/19 Blood Pressure Location Rt brachial 05/21/19 Blood Pressure Position Sitting 05/21/19 Respiratory Rate 20 H 05/21/19 Pulse Rate 68 05/21/19 Pulse Ox 95 Intake Visit Reasons: PD CATH Chief Complaint: discuss PD caths Special Education Instructor Required: No Is patient in pain?: No Allergies Sulfa (Sulfonamide Antibiotics) Allergy (Severe, Verified 05/21/19 08:36) Rash clonidine Adverse Reaction (Severe, Verified 05/21/19 08:36) sedation Medications Aspirin [Aspirin, Baby] 81 mg PO DAILY@0800 07/06/16 [History Confirmed 05/21/19] Clopidogrel Bisulfate [Plavix] 75 mg PO DAILY 07/06/16 [History Confirmed 05/21/19] doxazosin 4 mg tablet 4 mg PO QHS tab 01/16/18 [History Confirmed 05/21/19] cholecalciferol (vitamin D3) 1,000 unit (25 mcg) tablet 1,000 unit PO DAILY 02/06/19 [History Confirmed 05/21/19] metoprolol succinate ER 100 mg tablet,extended release 24 hr 100 mg PO .COMPLEX 02/06/19 [History Confirmed 05/21/19] pantoprazole 20 mg tablet,delayed release 20 mg PO DAILY 02/06/19 [History Confirmed 05/21/19] glimepiride 1 mg tablet 1 mg PO .COMPLEX 03/10/19 [History Confirmed 05/21/19] amlodipine 2.5 mg tablet 2.5 mg PO DAILY #30 tab 03/12/19 [Rx Confirmed 05/21/19] omega-3 fatty acids 1,000 mg capsule 1,000 mg PO DAILY 03/12/19 [History Confirmed 05/21/19] sitagliptin 25 mg tablet 25 mg PO DAILY 03/12/19 [History Confirmed 05/21/19] furosemide 20 mg tablet 20 mg PO DAILY 04/30/19 [History Confirmed 05/21/19] rosuvastatin 10 mg tablet 10 mg PO DAILY 05/21/19 [History Confirmed 05/21/19] [facility] Medical History (Updated 05/21/19 @ 08:35 by Jodi Abraham) Mixed hyperlipidemia (Chronic) CKD (chronic kidney disease) stage 4, GFR 15-29 ml/min (Chronic) Type 2 diabetes mellitus (Chronic) Essential hypertension (Chronic) Atherosclerotic heart disease of [place] coronary artery without angina pectoris (Chronic) Anemia (Acute) History of gastric ulcer (Acute) History of left heart catheterization (LHC) (Acute ~2000) Myocardial infarct (Acute) TIA (transient ischemic attack) (Acute) Surgical History History of coronary artery bypass surgery (Chronic ~08/08/18) History of toe surgery (Resolved) History of tonsillectomy (Resolved) Family History Mother Hypertension Father Congestive heart failure Social History (Updated 05/21/19 @ 10:05 by Fran Wyatt MD) Smoking Status: Former smoker alcohol intake: never substance use type: does not use caffeine: Yes Type: coffee Number of servings: 3 HPI HPI HPI: ELISSA POWER, is a 68 M who presents to the office today for HPI HPI Surgical H&P: Yes HPI: ELISSA POWER, is a 68 M who presents to the office today for surgical consultation regarding peritoneal dialysis catheter placement. The patient is referred by her tank setter helper Dr. Roshni Azar and a written compromise surgical consult recommendations will be returned to her. The patient in August 2018 had coronary bypass grafting x3. In 2000 he had coronary stents. Couple years ago he had TIAs. He was initially on clopidogrel for his coronary stents then had it ceased until he had his TIA then he was placed back on clopidogrel. He remains on clopidogrel therapy currently. He has hypertension and diabetes. He has stage IV chronic renal insufficiency. He has never had previous abdominal surgery. He is obese with a BMI of 32.4. ROS General General: Yes weight change and fatigue; no appetite, colon cancer or breast cancer HEENT HEENT: No difficulty swallowing, eye injury, eye surgery, swollen glands or hoarseness Endo Endocrine: Yes diabetes mellitus; no thyroid disease, thyroid cancer, Hair loss, heat intolerance or cold intolerance Musc Musculoskeletal: Yes arthritis; no back problems, rheumatoid arthritis, gout or joint pain Cardio Cardiovascular: Yes heart disease, high blood pressure, heart attack and heart stent; no murmur, pacemaker, atrial fibrillation, palpitations, shortness of breat with exertion or chest pain Resp Respiratory: No shortness of breath, No sleep apnea, Yes cough, No COPD, No asthma, No emphysema, No wheezing Gastro Gastrointestinal: No abdominal pain, No nausea or vomiting, No diarrhea, No constipation, No blood in stool, Yes acid reflux, Yes hemorrhoids, Yes ulcers, Yes gallbladder problem, No black,tarry stools Jesus Hematologic: No blood thinners, No blood disorders, No bleeding, Yes anemia, No blood clots Exam Const General: comfortable, no acute distress Nutritional Appearance: obese Orientation: alert, awake, oriented x3 HENMT Head: normal to inspection Chest Chest palpation & inspection: normal inspection of the chest Resp Effort & Inspection: normal respiratory effort Auscultation: clear to auscultation bilaterally Cardio Rate: regular rate Rhythm: regular rhythm Heart Sounds: no murmurs GI Palpation: soft, no hepatosplenomegaly Auscultation: normal bowel sounds Other: Beltline runs high Skin General: no rashes or lesions noted Neuro Cognition: normal cognition Extrem General: no calf tenderness bilaterally Other: 2+ bilateral lower extremity pitting edema Psych Affect: normal affect Assessment & Plan Problems 1. CKD (chronic kidney disease) stage 4, GFR 15-29 ml/min N18.4 Plan 68-year-old gentleman with stage IV chronic renal insufficiency and need for dialysis access. I briefly discussed with him hemodialysis access technique. The patient is interested in avoiding a fistula and voiding IV access. He certainly does not feel that he would be capable of doing that himself in a home situation. In detail I have discussed with the patient and his the technique, benefits, risks, alternatives of lap scopic placement of peritoneal dialysis catheter. He is on clopidogrel and we will have him hold that 3 days preprocedure. The clopidogrel was because of a previous TIA. That he does wear his slack somewhat higher and we will have him Kal his belt line. He is aware that the catheters will typically exit in the left lower quadrant. No guarantees of success have been offered. Patient likely will require an omentopexy and I discussed this. He has had an opportunity to ask and have questions answered. Appreciate the opportunity of assisting with his surgical care. We will confer with his engineering document control clerk Dr. Jack Delgado as well. CC: Dr. Santosh Tavarez and Dr. Roshni Azar and Dr. Jack Wyatt M.D., F.A.C.S. Coding Level of Care Code 49089 Diagnoses CKD (chronic kidney disease) stage 4, GFR 15-29 ml/min N18.4 05/21/19 1005 <Electronically signed by Fran williamson MD> Date _ Fran Wyatt MD I have re-examined the patient. There are no clinical changes since date of exam.
--- NOTE | 2019-05-28 12:58 | EKG12_ITS ---
Test Reason : PREOP Blood Pressure : / mmHG Vent. Rate : 054 BPM Atrial Rate : 054 BPM P-R Int : 198 ms QRS Dur : 104 ms QT Int : 432 ms P-R-T Axes : 041 040 062 degrees QTc Int : 409 ms Sinus bradycardia Otherwise normal ECG Confirmed by JESSIAC ALVARADO, LYNN ([id number]), make up editor TATYANA CHANDLER ([id number]) on 06/01/2019 9:27:42 AM Referred By: Fran Wyatt Confirmed By:LOLA LOPEZ MD
[2019-05-28 13:23] LABS: Hematocrit 36.4 % (40-54); Hemoglobin 12.1 g/dL (13.0-16.5); Mean Corp Hgb Conc 33.2 g/dL (32-36); Mean Corpuscular Hgb 27.9 pg (27.0-32.0); Mean Corpuscular Volume 84.1 fL (80-94); Mean Platelet Vol. 8.7 fl (6.2-12.0); Platelet Count 215 K/mm3 (150-450); RBC Distribution Width CV 13.6 % (11.6-14.6); RBC Distribution Width SD 42.6 fl (35.1-43.9); Red Blood Count 4.33 M/mm3 (4.6-6.2)
[2019-05-28 13:38] LABS: Anion Gap 10 (5-15); BUN 70 mg/dL (7-18); BUN/Creat Ratio 12.7 RATIO (10-20); Chloride 110 mmol/L (98-107); Creatinine, Serum 5.51 mg/dL (0.70-1.30); EST Glomerular Filtration Rate 11 mL/min (>60); Est Glom Filt Rate - Afr Amer 13 mL/min (>60); Estimated Creatinine Clearance 13.67 ml/min; Glucose 97 mg/dL (74-106); Potassium 4.7 mmol/L (3.5-5.1); Sodium Level 140 mmol/L (136-145)
[2019-05-28 13:39] LABS: Hemoglobin A1c 7.1 % (4.2-6.3)
[2019-05-28 13:40] LABS: International Normalized Ratio 1.1; Partial Thromboplast Time 34.3 Seconds (24.1-36.2); Prothrombin Time (Protime)PT. 14.1 SECONDS (11.7-14.9)
[2019-06-02 07:31] VITALS: BP 146/87; PULSE 58; RESP 16; TEMP 36.9; O2SAT 95; BMI 32.8
[2019-06-02] MEDS: 0.45% Normal Saline 1,000 ML 30 ML IV (07:51)
[2019-06-02 08:16] LABS: Bedside Glucose 111 mg/dL (70-110)
--- NOTE | 2019-06-02 08:49 | PCM.DC.GS ---
Discharge Diet: Light diet - advance as tolerated - if you have questions about your diet instructions, please talk to you doctor., Renal Diet Discharge Activity: May Not Drive - for 3-5 days or while taking narcotic pain medicine. May shower in (days): 1 Lifting Restrictions: 10 pounds Call your doctor if your incision/area has: Continuous Slow Oozing, Sudden Increased Bleeding, Increased Pain/ Swelling, Increased Redness, Foul Smelling Discharge Call your doctor if you observe: Fever of 101 or Higher Suture Line Care: Avoid Pulling/Pushing, Avoid Pinching/Bending Additional Dressing/Incision Instructions:: Please keep your dressings clean dry and intact until your dialysis center appointment in 1 week Allergies/Adverse Reactions: Allergies Sulfa (Sulfonamide Antibiotics) Allergy (Severe, Verified 05/28/19 09:29) Rash clonidine Adverse Reaction (Severe, Verified 05/28/19 09:29) sedation Medications to take at Discharge Aspirin [Aspirin, Baby] 81 mg PO DAILY@0800 07/06/16 Clopidogrel Bisulfate [Plavix] 75 mg PO DAILY 07/06/16 doxazosin 4 mg tablet 4 mg PO QHS tab 01/16/18 cholecalciferol (vitamin D3) 1,000 unit (25 mcg) tablet 1,000 unit PO DAILY 02/06/19 metoprolol succinate ER 100 mg tablet,extended release 24 hr 100 mg PO .COMPLEX 02/06/19 pantoprazole 20 mg tablet,delayed release 20 mg PO DAILY 02/06/19 glimepiride 1 mg tablet 2 mg PO DAILY 03/10/19 amlodipine 2.5 mg tablet 2.5 mg PO DAILY #30 tab 03/12/19 omega-3 fatty acids 1,000 mg capsule 1,000 mg PO DAILY 03/12/19 furosemide 20 mg tablet 20 mg PO DAILY 04/30/19 rosuvastatin 10 mg tablet 10 mg PO DAILY 05/21/19 Alogliptin Benzoate [Alogliptin] 6.25 mg PO DAILY 05/28/19 Glimepiride 1 mg PO 2100 05/28/19 Orders to be completed after discharge: 12 Lead EKG [[facility]] Time Frame: 05/28/19, Facility: [facility], Location: Cardiovascular Services Basic Metabolic Profile (BMP) Time Frame: 05/28/19, Facility: [facility], Location: Laboratory CBC-Complete Blood Cnt No Diff Time Frame: 05/28/19, Facility: [facility], Location: Laboratory Hemoglobin A1c Time Frame: 05/28/19, Facility: [facility], Location: Laboratory Partial Thromboplast Time Time Frame: 05/28/19, Facility: [facility], Location: Laboratory Prothrombin Time w/INR Time Frame: 05/28/19, Facility: [facility], Location: Laboratory Primary Care Physician: Santosh Tavarez [Primary Care Provider] - Test Results: Test results from this visit will be discussed in further detail at your follow-up appointment, if applicable. Please Follow Up With: Fran Wyatt MD - [phone] When: Call to make an appointment to be seen in about 10 days.
[2019-06-02] MEDS: Cefazolin 2 GM in 0.9% Normal Saline 100 ML IV (09:08)
[2019-06-02] MEDS: Heparin Injection (Vial) 5,000 UNIT/ML VIAL 5000 UNIT (09:50)
--- NOTE | 2019-06-02 09:52 | OP.PCM_ITS ---
Problem List (1) CKD (chronic kidney disease) stage 4, GFR 15-29 ml/min Status: Chronic Report of Operation Date of Procedure: 06/02/19 Pre-Operative Diagnosis: Stage IV chronic renal insufficiency Post-Operative Diagnosis: Same Surgery/Procedure Performed:: Laparoscopic peritoneal dialysis catheter placement with laparoscopic omentopexy. [employer] [place] peritoneal dialysis catheter reference #[id number]. Lot #[id number]. Expiry date 10/10/2023 Description of Surgical Findings:: Timeout and informed consent was obtained. 68-year-old gent was taken to the operating room placed on the table underwent general endotracheal intubation anesthesia. Ancef 2 g were given intravenously preoperatively. The abdomen sterilely prepped and draped. Ioban draping was used as well. 0.5% Marcaine was used as a local anesthetic. A total of 20 cc was used. Skin sites were anesthetized. To the right of the umbilicus using a 5 mm Visiport technology access was gained to the abdomen. The abdomen was insufflated with CO2 to pressure of 10 minutes mercury pressure. A 5-minute trocar site was placed in the right lower quadrant. The abdomen was inspected. There was a very fatty overhanging omentum. No intra-abdominal adhesions. The bladder appeared to be floppy and distended and enlarged. To the left of the umbilicus slightly inferiorly after measuring the length of the catheter I made a transverse incision dissected down to the rectus sheath use the varies needle connected with the dilating trocar puncture that through the anterior rectus sheath and then while watching laparoscopically went 6 cm and then penetrated the peritoneum heading toward the pelvis. I then put the serial dilator and. I then put the catheter over a guidewire down into the pelvis. The internal cuff was placed just beneath the peritoneal reflection. The catheter appeared to position itself quite nicely into the pelvis. Unfortunately huge urinary bladder appeared to drape over it. The tubing was then tunneled into the left abdomen more superior than normal because of the patient's belt placement. I exited at a 30 degree downward angle. I connected the titanium attachment device and then we added 1 L of saline. We allowed for egress of the fluid that we only got approximately 400 and return. I inspected the abdomen laparoscopically. The patient has a very large bulbous abdomen the urinary bladder was overlying the catheter was in perfect position. I elected to leave the situation as is as I did not feel I could place the catheters in any different position. I placed 100 cc of heparinized saline through the catheter. Attached to the extension device. Because of the patient's overlying heavy fatty omentum I elected to do an omentopexy. I made a stab wound in the left midabdomen inserted a grainy needle with a 0 Prolene and completed that portion of the omentum up upon the grainy needle I then secured to the left lateral sidewall. That appeared to secure the omentum well enough to not allow any of it to get to the pelvis. Hemostasis was nicely intact. The abdomen was allowed to deflate of the CO2. Skin edges approximate interrupted 4 Monocryl subdermal stitches. Steri-Strips Telfa silver impregnated dressing bulky dry dressings and OpSite dressing was applied. Sponge and instrument and needle counts reported the surgeon be correct. Specimens none. Drains none. Blood loss minimal. He was taken to the recovery area in satisfactory condition without apparent complication Fran Wyatt M.D., F.A.C.S. Type of Anesthesia:: General, Local Anesthesiologist: Reyes Salazar
[2019-06-02] MEDS: Bupivacaine Mpf 0.5% 30 ML VIAL (09:55)
[2019-06-02 10:15] VITALS: BP 146/87; BP 157/88; PULSE 77; RESP 16; TEMP 36.4; O2SAT 95
[2019-06-02 10:25] VITALS: BP 146/87; BP 149/83; PULSE 69; RESP 16; O2SAT 97
[2019-06-02 10:26] LABS: Bedside Glucose 113 mg/dL (70-110)
[2019-06-02 10:45] VITALS: BP 129/77; BP 146/87; PULSE 59; RESP 16; O2SAT 95
[2019-06-02 10:49] VITALS: BP 146/87; PULSE 61; RESP 16; TEMP 36.3; O2SAT 95
[2019-06-02 15:04] VITALS: BP 146/87
== END 2019-06-02 15:15 | disposition home or self-care (01) ==
LOC: SDC 07:03 → AC 07:03
PROVIDERS: Family Provider Family Medicine; PCP Family Medicine; Referring Provider Surgery; Visit Provider Surgery
PROC: 0WHG43Z Insertion of Infusion Device into Peritoneal Cavity, Percutaneous Endoscopic Approach (ICD-10-PCS; CPT 49324; principal; 2019-06-02 09:00)
DX: I12.9 Hypertensive chronic kidney disease with stage 1 through stage 4 chronic kidney disease, or unspecified chronic kidney disease (principal); E11.22 Type 2 diabetes mellitus with diabetic chronic kidney disease; N18.4 Chronic kidney disease, stage 4 (severe); D63.1 Anemia in chronic kidney disease; I25.10 Atherosclerotic heart disease of native coronary artery without angina pectoris; I25.2 Old myocardial infarction; E78.2 Mixed hyperlipidemia; K21.9 Gastro-esophageal reflux disease without esophagitis; E66.9 Obesity, unspecified; Z68.32 Body mass index [BMI] 32.0-32.9, adult; Z95.1 Presence of aortocoronary bypass graft; Z95.5 Presence of coronary angioplasty implant and graft; Z79.82 Long term (current) use of aspirin; Z79.02 Long term (current) use of antithrombotics/antiplatelets; Z79.84 Long term (current) use of oral hypoglycemic drugs; Z79.899 Other long term (current) drug therapy; Z87.891 Personal history of nicotine dependence; Z86.73 Personal history of transient ischemic attack (TIA), and cerebral infarction without residual deficits
CPT/HCPCS: 00840; 49324; 49326; 36415; 80048; 82962; 83036; 85027; 85610; 85730; 93005; J2405

== ENCOUNTER → 2019-06-09 10:59 | Outpatient (CLI) | payer MEDICARE, SELFPAY ==
[2019-06-02 07:31] VITALS: BMI 32.8
[2019-06-09 12:25] LABS: Hematocrit 34.7 % (40-54); Hemoglobin 11.2 g/dL (13.0-16.5); Mean Corp Hgb Conc 32.3 g/dL (32-36); Mean Corpuscular Hgb 27.7 pg (27.0-32.0); Mean Corpuscular Volume 85.9 fL (80-94); Mean Platelet Vol. 9.1 fl (6.2-12.0); Platelet Count 237 K/mm3 (150-450); RBC Distribution Width CV 13.6 % (11.6-14.6); RBC Distribution Width SD 42.5 fl (35.1-43.9); Red Blood Count 4.04 M/mm3 (4.6-6.2); White Blood Count 13.8 K/mm3 (4.4-11.0)
[2019-06-09 12:37] LABS: BUN 75 mg/dL (7-18); BUN/Creat Ratio 13.1 RATIO (10-20); Calcium,Total 8.9 mg/dL (8.5-10.1); Chloride 110 mmol/L (98-107); Creatinine, Serum 5.72 mg/dL (0.70-1.30); EST Glomerular Filtration Rate 11 mL/min (>60); Est Glom Filt Rate - Afr Amer 13 mL/min (>60); Glucose 206 mg/dL (74-106); Sodium Level 139 mmol/L (136-145)
[2019-06-09 14:49] LABS: PTHIN 133.9 pg/mL (18.4-80.1)
== END ==
PROVIDERS: Family Provider Family Medicine; PCP Family Medicine; Visit Provider Internal Medicine Nephrology
DX: N18.5 Chronic kidney disease, stage 5 (principal); D63.1 Anemia in chronic kidney disease
CPT/HCPCS: 36415; 80069; 83970; 85027

== ENCOUNTER → 2019-06-22 12:56 | Outpatient (CLI) | payer MEDICARE, SELFPAY ==
[2019-06-02 07:31] VITALS: BMI 32.8
[2019-06-22 13:58] LABS: Albumin, Serum 2.1 g/dL (3.2-5.0); BUN 61 mg/dL (7-18); BUN/Creat Ratio 10.9 RATIO (10-20); Calcium,Total 8.8 mg/dL (8.5-10.1); Chloride 109 mmol/L (98-107); Creatinine, Serum 5.61 mg/dL (0.70-1.30); EST Glomerular Filtration Rate 11 mL/min (>60); Est Glom Filt Rate - Afr Amer 13 mL/min (>60); Glucose 140 mg/dL (74-106); Phosphorus 5.3 mg/dL (2.5-4.9); Sodium Level 137 mmol/L (136-145)
[2019-06-22 14:21] LABS: Hepatitis B Surface Antigen Non-Reactive (Nonreactive)
== END ==
PROVIDERS: Family Provider Family Medicine; PCP Family Medicine; Referring Provider Internal Medicine Nephrology; Visit Provider Internal Medicine Nephrology
DX: N18.5 Chronic kidney disease, stage 5 (principal); E78.2 Mixed hyperlipidemia
CPT/HCPCS: 36415; 80069; 87340

== ENCOUNTER → 2020-04-05 12:45 | Outpatient (CLI) | payer MEDICARE, SELFPAY ==
[2019-09-17 10:05] VITALS: BMI 32.8
--- NOTE | 2020-04-05 12:45 | VDUE_ITS ---
Reason For Study: Pre op testing Right Arm Left Arm Right Cephalic Vein at the wrist measures Left Cephalic Vein at the wrist measures 0.13 x 0.14 cm. 0.12 x 0.12 cm. Right Cephalic Vein in the forearm measures Left Cephalic Vein in the forearm measures 0.17 x 0.18 cm. 0.21 x 0.22 cm. Right Cephalic Vein below antecub measures Left Cephalic Vein below antecub measures 0.24 x 0.23 cm. 0.21 x 0.22 cm. Right Cephalic Vein above antecub measures Left Cephalic Vein above antecub measures 0.34 x 0.34 cm. 0.43 x 0.44 cm. Right Cephalic Vein mid bicep measures 0.33 Left Cephalic Vein at mid bicep measures x 0.32 cm. 0.42 x 0.42 cm. Right Cephalic Vein at the shoulder measures Left Cephalic Vein at the shoulder measures 0.32 x 0.32 cm. 0.41 x 0.41 cm. Right Basilic Vein at the origin measures Basilic vein at origin measures 0.48 x 0.48 0.54 x 0.53 cm. cm. Right Basilic Vein mid bicep measures 0.28 x Basilic vein at bicep measures 0.46 x 0.46 0.28 cm. cm. Right Basilic Vein above antecub measures Basilic vein above antecub measures 0.48 x 0.28 x 0.28 cm. 0.49 cm. Right Brachial artery measures 0.48 x 0.48 Left Brachial artery measures 0.44 x 0.43 cm cm with a velocity of 65.2 cm/sec. with a velocity of 68.7 cm/sec. Right Radial artery measures 0.22 x 0.22 cm Left Radial artery measures 0.21 x 0.20 sm with a velocity of 48 cm/sec. with a velocity of 49.7 cm/sec. Interpretation Summary Patent and compressible bilateral upper extremity cephalic and basilic veins as noted. Bilateral forearm cephalic veins are borderline diminutive Bilateral radial and brachial arteries of appropriate dimension and flow Ordering Physician: Fran Wyatt Referring Physician: Santosh Tavarez Performed By: Shanika Pisano RVT ?
== END ==
PROVIDERS: PCP Family Medicine; Referring Provider Surgery; Visit Provider Surgery
DX: Z01.818 Encounter for other preprocedural examination (principal); N18.4 Chronic kidney disease, stage 4 (severe)
CPT/HCPCS: 93970

== ENCOUNTER 2020-04-27 07:33 | Day surgery (SDC) | payer MEDICARE, SELFPAY ==
[2020-04-15 08:03] VITALS: BMI 31.5
--- NOTE | 2020-04-20 09:40 | EKG12_ITS ---
Test Reason : PRE OP Blood Pressure : / mmHG Vent. Rate : 069 BPM Atrial Rate : 069 BPM P-R Int : 192 ms QRS Dur : 110 ms QT Int : 452 ms P-R-T Axes : 024 022 064 degrees QTc Int : 484 ms Normal sinus rhythm Inferior infarct , age undetermined Nonspecific T wave abnormality Abnormal ECG Confirmed by YASH ALVARADO, ALTAGRACIA ([id number]), commissioning editor TOMMY FOY ([id number]) on 04/22/2020 12:28:34 PM Referred By: Fran Wyatt Confirmed By:ALTAGRACIA BERRIOS MD
[2020-04-20 11:09] LABS: Hematocrit 33.4 % (40-54); Hemoglobin 11.1 g/dL (13.0-16.5); Mean Corp Hgb Conc 33.2 g/dL (32-36); Mean Corpuscular Hgb 30.1 pg (27.0-32.0); Mean Corpuscular Volume 90.5 fL (80-94); Mean Platelet Vol. 8.4 fl (6.2-12.0); Platelet Count 266 K/mm3 (150-450); RBC Distribution Width CV 14.2 % (11.6-14.6); RBC Distribution Width SD 46.8 fl (35.1-43.9); Red Blood Count 3.69 M/mm3 (4.6-6.2); White Blood Count 14.1 K/mm3 (4.4-11.0)
[2020-04-20 12:08] LABS: Anion Gap 10 (5-15); BUN 42 mg/dL (7-18); BUN/Creat Ratio 4.8 RATIO (10-20); Calcium,Total 9.2 mg/dL (8.5-10.1); Chloride 87 mmol/L (98-107); Creatinine, Serum 8.74 mg/dL (0.70-1.30); EST Glomerular Filtration Rate 6 mL/min (>60); Est Glom Filt Rate - Afr Amer 8 mL/min (>60); Glucose 198 mg/dL (74-106); Sodium Level 127 mmol/L (136-145)
[2020-04-27] VITALS (8 sets, daily range): BP systolic 111–136; BP diastolic 65–90; PULSE 73–81; RESP 16; TEMP 36.1–36.9; O2SAT 98–99; BMI 32.9
[2020-04-27] MEDS: 0.9% Normal Saline 1,000 ML 30 ML IV (08:13)
[2020-04-27 08:26] LABS: Bedside Glucose 195 mg/dL (70-110)
--- NOTE | 2020-04-27 09:17 | DCINST_ITS ---
Discharge Diet: Renal Diet Discharge Activity: May Not Drive - for 2-3 days or while taking narcotic pain medications., May Shower, May Take a Tub Bath - in 5 days. Lifting Restrictions: 5 pounds Keep extremity elevated above heart level: - - Keep arm elevated above the heart level for 3 days. Additional Activity Instructions:: Exercise hand vigorously with a stress ball. Call your doctor if your incision/area has: Continuous Slow Oozing, Sudden Increased Bleeding - apply pressure and call your doctor., Increased Pain/ Swelling, Increased Redness, Foul Smelling Discharge Call your doctor if you observe: Fever of 101 or Higher Suture Line Care: Avoid Pulling/Pushing, Avoid Pinching/Bending Cleanse incision/area with: Keep Dressing Clean & Dry Additional Dressing/Incision Instructions:: Change or remove dressing in one day. May protect with a gauze bandaid. Additional Instructions: Please refer to the preprinted fistula discharge instructions Allergies/Adverse Reactions: Allergies Sulfa (Sulfonamide Antibiotics) Allergy (Severe, Verified 04/27/20 07:52) Rash clonidine Adverse Reaction (Severe, Verified 04/27/20 07:52) sedation Medications to take at Discharge Aspirin [Aspirin, Baby] 81 mg PO DAILY@0800 07/06/16 Clopidogrel Bisulfate [Plavix] 75 mg PO DAILY 07/06/16 cholecalciferol (vitamin D3) 25 mcg (1,000 unit) tablet 1,000 unit PO DAILY 02/06/19 pantoprazole 20 mg tablet,delayed release 20 mg PO DAILY 02/06/19 glimepiride 1 mg tablet 2 mg PO BID tab 09/17/19 furosemide 20 mg tablet 40 mg PO BID tab 04/15/20 insulin glargine 100 unit/mL subcutaneous solution 40 unit SC QHS 04/15/20 omega-3 fatty acids 1,000 mg capsule 2,000 mg PO DAILY cap 04/15/20 rosuvastatin 10 mg tablet 20 mg PO QHS tab 04/15/20 sitagliptin 25 mg tablet 50 mg PO DAILY tab 04/15/20 Calcium Acetate 667 mg PO PRN PRN 04/19/20 Metoprolol Succinate [Toprol Xl] 50 mg PO DAILY 04/19/20 Renal Caps Softgel 1 cap PO DAILY 04/19/20 Primary Care Physician: Santosh Tavarez DO [Primary Care Provider] - Test Results: Test results from this visit will be discussed in further detail at your follow- up appointment, if applicable. Please Follow Up With: Fran Wyatt MD - [phone] When: Call to make an appointment for suture removal and follow up in 10 days
--- NOTE | 2020-04-27 09:22 | PCM.HP.BLA ---
Problem List (1) Problem with dialysis access Status: Acute Qualifiers: History and Physical Date of Admission: 04/27/20 Intake Visit Reasons: Consult Fistula/Vein mapping 04/05 [facility] Chief Complaint: discuss PD caths Allergies Sulfa (Sulfonamide Antibiotics) Allergy (Severe, Verified 04/15/20 09:34) Rash clonidine Adverse Reaction (Severe, Verified 04/15/20 09:34) sedation Medications Aspirin [Aspirin, Baby] 81 mg PO DAILY@0800 07/06/16 [History Confirmed 04/15/20] Clopidogrel Bisulfate [Plavix] 75 mg PO DAILY 07/06/16 [History Confirmed 04/15/20] cholecalciferol (vitamin D3) 25 mcg (1,000 unit) tablet 1,000 unit PO DAILY 02/06/19 [History Confirmed 04/15/20] metoprolol succinate 100 mg tablet,extended release 24 hr 100 mg PO .COMPLEX 02/06/19 [History Confirmed 04/15/20] pantoprazole 20 mg tablet,delayed release 20 mg PO DAILY 02/06/19 [History Confirmed 04/15/20] glimepiride 1 mg tablet 2 mg PO BID tab 09/17/19 [History Confirmed 04/15/20] B complex-vitamin C-folic acid 0.8 mg tablet 1 tab PO DAILY 04/15/20 [History Confirmed 04/15/20] furosemide 20 mg tablet 40 mg PO BID tab 04/15/20 [History Confirmed 04/15/20] insulin glargine 100 unit/mL subcutaneous solution 40 unit SC DAILY 04/15/20 [History Confirmed 04/15/20] omega-3 fatty acids 1,000 mg capsule 2,000 mg PO DAILY cap 04/15/20 [History Confirmed 04/15/20] rosuvastatin 10 mg tablet 20 mg PO DAILY tab 04/15/20 [History Confirmed 04/15/20] sitagliptin 25 mg tablet 50 mg PO DAILY tab 04/15/20 [History Confirmed 04/15/20] [facility] Medical History (Updated 04/15/20 @ 09:[address] Fran Wyatt MD) Problem with dialysis access (Acute) Mixed hyperlipidemia (Chronic) CKD (chronic kidney disease) stage 4, GFR 15-29 ml/min (Chronic) Type 2 diabetes mellitus (Chronic) Essential hypertension (Chronic) Atherosclerotic heart disease of [place] coronary artery without angina pectoris (Chronic) Anemia (Acute) History of gastric ulcer (Resolved) History of left heart catheterization (LHC) (Resolved ~2000) Myocardial infarct (Resolved) TIA (transient ischemic attack) (Resolved) Surgical History History of coronary artery bypass surgery (Chronic ~08/08/18) History of toe surgery (Resolved) History of tonsillectomy (Resolved) Family History Mother Hypertension Father Congestive heart failure Social History (Updated 04/15/20 @ 09:[address] Fran Wyatt MD) Smoking Status: Former smoker alcohol intake: never substance use type: does not use caffeine: Yes Type: coffee Number of servings: 3 HPI HPI HPI: ELISSA POWER, is a 69 M who presents to the office today for surgical consultation regarding arteriovenous fistula creation. The patient is referred by Dr. Roshni Azar and a written copy of my surgical consult recommendations will return to her. On May 23, 2019 I placed peritoneal dialysis catheters for him. The peritoneal dialysis catheters are not functioning adequately. He has been referred back by Dr. Roshni Azar for placement of fistula. The patient also notifies me that he was detected is having a lung mass. He will be seeing Dr. Rutherford approximately April 25. The patient is right arm dominant. He is on clopidogrel therapy because of her previous TIA and what he describes as central cerebral vascular disease. He had bilateral upper extremity vein mapping as noted below. Bilateral forearm cephalic veins are borderline [facility] [address] [place] [address]. [place] [address] Saphenous Vein Mapping, Bilat 04/05/20 1259 MR#: [id number] Name: ELISSA POWER [facility] #:[id number] : 1950 69From: Fran Wyatt MD Attending Dr: JENNIFER Chapmantatus: REG CLI Ordering Dr: Fran Wyatt MDDate: 04/05/20 Location:CVSSex: Admitted: Reason For Study: Pre op testing Right Arm Left Arm Right Cephalic Vein at the wrist measures Left Cephalic Vein at the wrist measures 0.13 x 0.14 cm. 0.12 x 0.12 cm. Right Cephalic Vein in the forearm measures Left Cephalic Vein in the forearm measures 0.17 x 0.18 cm. 0.21 x 0.22 cm. Right Cephalic Vein below antecub measures Left Cephalic Vein below antecub measures 0.24 x 0.23 cm. 0.21 x 0.22 cm. Right Cephalic Vein above antecub measures Left Cephalic Vein above antecub measures 0.34 x 0.34 cm. 0.43 x 0.44 cm. Right Cephalic Vein mid bicep measures 0.33 Left Cephalic Vein at mid bicep measures x 0.32 cm. 0.42 x 0.42 cm. Right Cephalic Vein at the shoulder measures Left Cephalic Vein at the shoulder measures 0.32 x 0.32 cm. 0.41 x 0.41 cm. Right Basilic Vein at the origin measures Basilic vein at origin measures 0.48 x 0.48 0.54 x 0.53 cm. cm. Right Basilic Vein mid bicep measures 0.28 x Basilic vein at bicep measures 0.46 x 0.46 0.28 cm. cm. Right Basilic Vein above antecub measures Basilic vein above antecub measures 0.48 x 0.28 x 0.28 cm. 0.49 cm. Right Brachial artery measures 0.48 x 0.48 Left Brachial artery measures 0.44 x 0.43 cm cm with a velocity of 65.2 cm/sec. with a velocity of 68.7 cm/sec. Right Radial artery measures 0.22 x 0.22 cm Left Radial artery measures 0.21 x 0.20 sm with a velocity of 48 cm/sec. with a velocity of 49.7 cm/sec. Interpretation Summary Patent and compressible bilateral upper extremity cephalic and basilic veins as noted. Bilateral forearm cephalic veins are borderline diminutive Bilateral radial and brachial arteries of appropriate dimension and flow Ordering Physician: Fran Wyatt Referring Physician: Santosh Tavarez Performed By: Shanika Pisano RVT ? 04/05/20 1621 Date Fran Wyatt MD HPI HPI HPI: ELISSA POWER, is a 69 M who presents to the office today for Exam Const General: cooperative, comfortable, no acute distress Nutritional Appearance: obese Orientation: alert, awake HENMT Head: normal to inspection Resp Effort & Inspection: normal respiratory effort Other: Clear on the right Rales left base Cardio Rate: regular rate Rhythm: regular rhythm GI Palpation: soft, no hepatosplenomegaly Auscultation: normal bowel sounds Other: Peritoneal dialysis catheters exiting left lower quadrant of the abdomen. Clean dry intact, no drainage, nontender Skin General: no rashes or lesions noted Neuro Cognition: normal cognition Extrem General: no calf tenderness Other: 1+ bilateral lower extremity swelling Psych Affect: normal affect Assessment & Plan Problems 1. Problem with dialysis access, initial encounter T82.428A Plan 69-year-old gentleman who has peritoneal dialysis catheters in place. He states that they are becoming less efficient and he is being referred for AV fistula creation. In addition he has a left lung mass which by report is 4 cm and will need evaluation. The patient is on clopidogrel and aspirin therapy because of a previous TIA. He is right arm dominant. I propose for him a left upper arm transposed cephalic vein to brachial artery AV fistula creation. I have performed ultrasound inspection on him today in addition to his preprocedure vein mapping. The forearm cephalic vein is diminutive. The upper arm cephalic vein is quite adequate however unfortunately it is rather deeply placed at more than 5 to 6 mm for the majority of its course. This patient will potentially need to have other medical treatment regarding his lung so I would like to hopefully be able to create a fistula in 1 stage in a position that would have high likelihood of success for accessing it. He has had an opportunity to ask and have questions answered. We will have him hold his clopidogrel 5 days preoperatively. He has had an opportunity to ask and have questions answered. He is aware that there are no guarantees of success. He is additionally aware that fistula is frequent require ongoing maintenance and intervention. We will schedule and expedite his care. I appreciate the ongoing opportunity of assisting with his surgical care Copy: Dr. Roshni Azar and Dr. Santosh Wyatt M.D., F.A.C.S. Medications Discontinued: amlodipine Discontinued Reason: Pt no longer taking 2.5 mg PO DAILY 30 tabs 3RF Coding Level of Care Code 21349 Diagnoses Problem with dialysis access, initial encounter T82.898A ??Encounter type: initial encounter I have re-examined the patient. There are no clinical changes since date of exam. Procedure Criteria Procedure Type: Elective COVID Risk Discussion: The surgeon/proceduralist and patient have discussed in detail the risk of exposure to and/or potential harm posed by the COVID-19 virus with having a surgery/procedure at this time versus the risk of delaying the surgery/procedure. It is not possible to know either the risk of delaying the surgery or procedure or chance of getting an infection with perfect accuracy, but a joint decision was made between the patient and the surgeon/proceduralist to proceed at this time with the scheduled surgery/procedure as indicated on the consent form.
[2020-04-27] MEDS: Bupivacaine Mpf 0.5% 30 ML VIAL (09:25)
[2020-04-27] MEDS: Cefazolin 2 GM in 0.9% Normal Saline 100 ML IV (09:32)
[2020-04-27] MEDS: Heparin Injection (Vial) 5,000 UNIT/ML VIAL 5000 UNIT (10:15)
--- NOTE | 2020-04-27 11:35 | OP.PCM_ITS ---
Problem List (1) Problem with dialysis access Status: Acute Qualifiers: Report of Operation Date of Procedure: 04/27/20 Pre-Operative Diagnosis: Malfunctioning peritoneal dialysis catheters in need of hemodialysis access Post-Operative Diagnosis: Same Surgery/Procedure Performed:: Transposition left upper arm cephalic vein to brachial artery arteriovenous fistula creation Description of Surgical Findings:: Timeout informed consent was obtained. 69-year-old gentleman was taken to the operating placement table underwent monitored anesthesia care. Ancef 2 g given intravenously. The left upper extremity was sterilely prepped and draped. 1% lidocaine mixed 50-50 with 0.5% Marcaine was used as a local anesthetic. A total of 2 cc was used. 0.5% lidocaine was additionally used to a total of 14 cc. Ultrasound was used to map the course of the left upper arm cephalic vein it was rather deeply placed local was instilled a longitudinal incision was crea xander tedious sharp and blunt dissection was used to dissect the vein free. Side branches were secured with 4-0 Vicryl ligatures and hemoclips. The vein was dissected free to the proximal upper arm and then I did some further subcutaneous dissection to further free the vein more excellently. Then the brachial artery was identified this was quite deeply placed in the distal left upper arm Doppler detection was required to help identify it sharp and blunt dissection performed circumferential control obtained. The vein was then ligated distally with hemoclips it had been marked it was then placed through a tunneler which was medial to the end incision it was irrigated to assure good positioning and then the patient received 10,000 units of heparin. Peripheral vascular clamps were placed on the brachial artery and 11 blade was used to make an arteriotomy which was extended with Fenton scissors the vein was slightly spatulated a end-to-side anastomosis was created with a running 7-0 Prolene. At the completion good hemostasis was achieved. The appeared to be good positional lie of the vein. There was a good pulse thrill bruit. The hand appeared to be viable Doppler signal was used to assure that both the radial and ulnar pulses were still present albeit somewhat diminished over occluding the fistula. After initial coolness to the hand appeared to pain Likely with relief of spasm. There appeared to be adequate capillary refill there appeared to be adequate warmth. At this point I elected not to pursue any further intervention on the fistula. The wound was closed with deep layer of interrupted 3-0 Vicryl and then a running subcuticular 4-0 Monocryl. Steri-Strips Telfa tape soft roll Alvin wrap applied. Sponge and instrument and needle counts were reported to the surgeon to be correct. Blood loss was 50 cc. Specimens none. Drains none. Blood loss 150 cc. The patient was taken to recovery area in satisfactory edition without apparent complication Fran Wyatt M.D., F.A.C.S. Type of Anesthesia:: Local MAC
== END 2020-04-27 13:59 | disposition home or self-care (01) ==
LOC: SDC 07:33 → AC 07:34
PROVIDERS: Anesthesiology; PCP Family Medicine; Referring Provider Surgery; Visit Provider Surgery
PROC: (CPT 36818; principal; 2020-04-27 09:25)
DX: T82.590A Other mechanical complication of surgically created arteriovenous fistula, initial encounter (principal); E78.2 Mixed hyperlipidemia; E11.22 Type 2 diabetes mellitus with diabetic chronic kidney disease; R91.8 Other nonspecific abnormal finding of lung field; I12.0 Hypertensive chronic kidney disease with stage 5 chronic kidney disease or end stage renal disease; N18.5 Chronic kidney disease, stage 5; Y73.8 Miscellaneous gastroenterology and urology devices associated with adverse incidents, not elsewhere classified; I25.10 Atherosclerotic heart disease of native coronary artery without angina pectoris; I25.2 Old myocardial infarction; Z20.828 Contact with and (suspected) exposure to other viral communicable diseases; Z79.899 Other long term (current) drug therapy; Z79.02 Long term (current) use of antithrombotics/antiplatelets; Z79.82 Long term (current) use of aspirin; Z79.4 Long term (current) use of insulin; Z86.73 Personal history of transient ischemic attack (TIA), and cerebral infarction without residual deficits; Z87.891 Personal history of nicotine dependence; R94.31 Abnormal electrocardiogram [ECG] [EKG]; Z95.1 Presence of aortocoronary bypass graft
CPT/HCPCS: 01780; 36818; 36415; 80048; 82962; 85027; 87635; 93005; C9803; J7030; J7120; U0003

== ENCOUNTER → 2020-05-09 15:14 | Outpatient (CLI) | payer MEDICARE, SELFPAY ==
[2020-04-27 07:58] VITALS: BMI 32.9
--- NOTE | 2020-05-09 15:15 | CT_ITS ---
STUDY: CT PELVIS WITHOUT CONTRAST REASON FOR EXAM: Male, 69 years old. PELVIC AND SCROTAL SWELLING AFTER PD CATHETER DIALYSIS TREATMENT. RADIATION DOSAGE (If Supplied By Facility): CTDIvol = ( 24.95 ) mGy, DLP = ( 1051.79 ) mGycm TECHNIQUE: Transaxial imaging of the pelvis was performed with oral contrast, and without intravenous administration of contrast material. Individualized dose optimization techniques were used for this CT. COMPARISON: None. FINDINGS: Normal urinary bladder. Normal visualized small intestine. Normal visualized colon. . There is no pelvic mass lesion or lymphadenopathy. Nonspecific prominence of the prostate Normal visualized pelvic arteries. Dialysis catheter noted entering the anterior pelvic wall to the left of the midline with the tip in the left lower quadrant in association with small amount of fluid in the pelvis.. Lumbar spine demonstrates mild spondylosis. Diffuse edematous changes are seen within the prepubic soft tissues extending into the scrotal aguilera bilaterally CT/Pelvis without IV Contrast IMPRESSION: Nonspecific diffuse edematous changes within the prepubic soft tissues extending inferiorly into the aguilera of the scrotum bilaterally. The fluid appears to be serous and there are no air bubbles to suggest infection. However clinical correlation is recommended Electronically Signed: Venkat Gannon MD at 18:10 EST , Service support ,
== END ==
PROVIDERS: PCP Family Medicine; Referring Provider Physician Assistant; Visit Provider Physician Assistant
DX: R19.00 Intra-abdominal and pelvic swelling, mass and lump, unspecified site (principal)
CPT/HCPCS: 72192

== ENCOUNTER 2020-05-11 14:07 | Day surgery (SDC) | payer MEDICARE, SELFPAY ==
[2020-05-11] VITALS (8 sets, daily range): BP systolic 97–114; BP diastolic 57–72; PULSE 71–85; RESP 16–18; TEMP 36.1–36.7; O2SAT 93–98; BMI 32.8
--- NOTE | 2020-05-11 14:17 | HP.PCM_ITS ---
Problem List (1) Problem with dialysis access Status: Acute Qualifiers: Encounter type: initial encounter Qualified Code(s): T82.898A - Other specified complication of vascular prosthetic devices, implants and grafts, initial encounter History of Present Illness Date of Admission: 05/11/20 The patient is a 69 year old M who presents with complicated issues regarding dialysis access. He is urgently admitted now because of malfunction of peritoneal dialysis catheters as well as difficulties with recently created left upper extremity transposed cephalic vein to basilic artery AV fistula. May 23 I placed peritoneal dialysis catheters for him. More recently they have not been functioning well. Subsequently on April 27, 2020 I created for him a left upper arm transposed cephalic vein to brachial artery AV fistula. That was technically a difficult procedure with significant soft tissue dissection. He was seen back in the office on May 03 and May 09 and today May 11 per Suad Dempsey PA-C. There was noted to be swelling of the left upper arm with some blistering from Steri-Strips. Then subsequently an additional problem the patient had a severe coughing fit that he developed soft tissue swelling of the suprapubic area and scrotum. A CT scan was obtained demonstrating this swelling. The patient was asked to hold his home peritoneal dialysis for day the swelling got better he reinstituted it last night and again had significant scrotal and suprapubic swelling. On my review of the CT it appears that the peritoneal catheters now are located off of the midline located in the left lower quadrant. It is difficult for me to tell whether they could partially be retracted but clearly they are now significantly malfunctioning. Also to then on today's visit in the office to evaluate that problem his left upper arm was inspected and noted to be significantly erythematous with some soft tissue oozing. There is concern now about a postoperative wound infection. He denies fever. Past Medical History Past Medical History (Chronic Problems): Chronic Problems (Last Updated 05/11/20 @ 13:06 by Hafsa Joshua) Mixed hyperlipidemia (Chronic) CKD (chronic kidney disease) stage 4, GFR 15-29 ml/min (Chronic) Type 2 diabetes mellitus (Chronic) Essential hypertension (Chronic) History of coronary artery bypass surgery (Chronic ~08/08/18) CABG x3- HILTON to LAD, SVG to PDA, SVG to Diag 1 Atherosclerotic heart disease of [place] coronary artery without angina pectoris (Chronic) Medical History: Medical History (Last Updated 05/11/20 @ 13:06 by Hafsa Joshua) Problem with dialysis access (Acute) T82.898A Mixed hyperlipidemia (Chronic) E78.2 CKD (chronic kidney disease) stage 4, GFR 15-29 ml/min (Chronic) N18.4 Type 2 diabetes mellitus (Chronic) E11.9 Essential hypertension (Chronic) I10 Atherosclerotic heart disease of [place] coronary artery without angina pectoris (Chronic) I25.10 Anemia D64.9 Scrotal edema N50.89 History of gastric ulcer Z87.19 History of left heart catheterization (LHC) Onset Date: ~2000 Z98.890 PCI/stent x2 2000 Myocardial infarct I21.9 TIA (transient ischemic attack) G45.9 Allergies Sulfa (Sulfonamide Antibiotics) Allergy (Severe, Verified 05/11/20 13:06) Rash clonidine Adverse Reaction (Severe, Verified 05/11/20 13:06) sedation Home Medications: Ambulatory Orders Medication Instructions Recorded Aspirin [Aspirin, Baby] 81 mg PO DAILY@0800 07/06/16 Clopidogrel Bisulfate [Plavix] 75 mg PO DAILY 07/06/16 cholecalciferol (vitamin D3) 25 1,000 unit PO DAILY 02/06/19 mcg (1,000 unit) tablet pantoprazole 20 mg tablet,delayed 20 mg PO DAILY 02/06/19 release glimepiride 1 mg tablet 2 mg PO BID tab 09/17/19 furosemide 20 mg tablet 40 mg PO BID tab 04/15/20 insulin glargine 100 unit/mL 40 unit SC QHS 04/15/20 subcutaneous solution omega-3 fatty acids 1,000 mg 2,000 mg PO DAILY cap 04/15/20 capsule rosuvastatin 10 mg tablet 20 mg PO QHS tab 04/15/20 sitagliptin 25 mg tablet 50 mg PO DAILY tab 04/15/20 Calcium Acetate 667 mg PO PRN PRN 04/19/20 Metoprolol Succinate [Toprol Xl] 50 mg PO DAILY 04/19/20 Renal Caps Softgel 1 cap PO DAILY 04/19/20 Surgical History: Surgical History (Last Reviewed 05/11/20 @ 13:06 by Hafsa Joshua) History of coronary artery bypass surgery (Chronic) Onset Date: ~08/08/18 Z95.1 CABG x3- HILTON to LAD, SVG to PDA, SVG to Diag 1 history AV fistula left arm Onset Date: ~04/27/20 History of toe surgery Z98.890 Lt great toe repair History of tonsillectomy Z90.89 Smoking Status: Former smoker Review of Systems Constitutional: Denies: Fever, Night Sweats Cardiovascular: Denies: Chest Pain Respiratory: Denies: Cough Gastrointestinal: Reports: - - Positive concerns about suprapubic swelling and scrotal swelling with fluid collection Musculoskeletal: Reports: - - Left upper extremity swelling VTE Information - Inpt Only VTE Present on Admission: No Patient Problems: Active and Suspected Problems (Last Updated 05/11/20 @ 13:06 by Hafsa Joshua) Problem with dialysis access (Acute) - Physical Exam General: Alert, Oriented x3, Cooperative Lungs: Clear to auscultation Cardiovascular: Regular rate, Regular Rhythm Abdomen: - - Significant scrotal and suprapubic swelling Extremities: - - Left upper arm significant diffuse swelling. Erythema overlying the fistula. Small amount of light drainage. Not particular tender. Pulse thrill and bruit noted Current Medications Vancomycin HCl (Vancomycin) 1,000 mg in 200 mls @ 200 mls/hr IV PREOP ONE Stop: 05/11/20 14:59 Assessment/Plan All Active Problems (Last Updated 05/11/20 @ 13:06 by Hafsa Joshua) Problem with dialysis access (Acute) 69-year-old gentleman. He has malfunction of peritoneal dialysis catheters. He clearly has not been well dialyzing now for a period of time. This is led to complication with general body swelling and is aggravated his left upper arm swelling. He certainly have significant suprapubic and scrotal swelling as there is likely infiltration of dialysis fluid into his soft tissues. I believe that this has complicated his wound healing in the left upper arm there is now erythema making this concern for wound infection as well. He has need for dialysis access in addition to all of this. I propose for him initiation of IV vancomycin for the left upper arm. He will continue to be instructed on conservative measures and continued to be closely followed. I recommend treatment urgent removal was tunneled peritoneal dialysis catheters to help alleviate the ongoing assimilation of fluid into his soft tissues In order for him to be dialyzed in 2 assist with generalized fluid collection we will place right possible left internal jugular tunneled dialysis catheters. He is aware of technique, benefit, risk, alternatives. He is aware of Covid 19. I believe his lack of efficient dialysis his now added to complications both at the peritoneal level in the left upper extremity level. He has a dialysis station set for 11:00 as an outpatient tomorrow. We will see if we can have him follow-up with our office first thing tomorrow morning as well. If he is failing to demonstrate improvement then he may subsequently require hospitalization as well. Fran Wyatt M.D., F.A.C.S.
[2020-05-11 14:47] LABS: Hematocrit 26.8 % (40-54); Hemoglobin 8.8 g/dL (13.0-16.5); Mean Corp Hgb Conc 32.8 g/dL (32-36); Mean Corpuscular Hgb 30.7 pg (27.0-32.0); Mean Corpuscular Volume 93.4 fL (80-94); Platelet Count 283 K/mm3 (150-450); RBC Distribution Width CV 15.1 % (11.6-14.6); RBC Distribution Width SD 51.3 fl (35.1-43.9); Red Blood Count 2.87 M/mm3 (4.6-6.2); White Blood Count 12.5 K/mm3 (4.4-11.0)
[2020-05-11 15:10] LABS: Anion Gap 11 (5-15); BUN 58 mg/dL (7-18); BUN/Creat Ratio 7.5 RATIO (10-20); Chloride 99 mmol/L (98-107); Creatinine, Serum 7.71 mg/dL (0.70-1.30); EST Glomerular Filtration Rate 7 mL/min (>60); Est Glom Filt Rate - Afr Amer 9 mL/min (>60); Glucose 84 mg/dL (74-106); Potassium 3.4 mmol/L (3.5-5.1); Sodium Level 136 mmol/L (136-145)
[2020-05-11] MEDS: 0.9% Normal Saline 1,000 ML 30 ML IV (15:16)
[2020-05-11] MEDS: Vancomycin IV 1,000 MG/200 ML BAG 200 MG IV (15:16)
[2020-05-11 16:00] LABS: Bedside Glucose 59 mg/dL (70-110)
--- NOTE | 2020-05-11 16:25 | DCINST_ITS ---
Discharge Diet: Renal Diet Discharge Activity: May Not Drive - No driving for 5-7 days Keep extremity elevated above heart level: Left Arm Call your doctor if your incision/area has: Continuous Slow Oozing, Sudden Increased Bleeding, Increased Pain/ Swelling, Increased Redness, Foul Smelling Discharge Call your doctor if you observe: Fever of 101 or Higher Additional Dressing/Incision Instructions:: Chest catheter dressing changes as per the dialysis center. The abdominal incision should have a plastic dressing on it which can be removed in 2 days. Allergies/Adverse Reactions: Allergies Sulfa (Sulfonamide Antibiotics) Allergy (Severe, Verified 05/11/20 13:06) Rash clonidine Adverse Reaction (Severe, Verified 05/11/20 13:06) sedation Medications to take at Discharge Aspirin [Aspirin, Baby] 81 mg PO DAILY@0800 07/06/16 Clopidogrel Bisulfate [Plavix] 75 mg PO DAILY 07/06/16 cholecalciferol (vitamin D3) 25 mcg (1,000 unit) tablet 1,000 unit PO DAILY 02/06/19 pantoprazole 20 mg tablet,delayed release 20 mg PO DAILY 02/06/19 glimepiride 1 mg tablet 2 mg PO BID tab 09/17/19 furosemide 20 mg tablet 40 mg PO BID tab 04/15/20 insulin glargine 100 unit/mL subcutaneous solution 43 unit SC QHS 04/15/20 omega-3 fatty acids 1,000 mg capsule 2,000 mg PO DAILY cap 04/15/20 rosuvastatin 10 mg tablet 20 mg PO QHS tab 04/15/20 sitagliptin 25 mg tablet 50 mg PO DAILY tab 04/15/20 Calcium Acetate 667 mg PO PRN PRN 04/19/20 Metoprolol Succinate [Toprol Xl] 50 mg PO DAILY 04/19/20 Renal Caps Softgel 1 cap PO DAILY 04/19/20 Primary Care Physician: Santosh Tavarez DO [Primary Care Provider] - Test Results: Test results from this visit will be discussed in further detail at your follow- up appointment, if applicable. Please Follow Up With: Fran Wyatt MD - [phone] When: Call to make an appointment to be seen in about 1 days.
[2020-05-11 17:30] LABS: Bedside Glucose 57 mg/dL (70-110)
[2020-05-11] MEDS: Bupivacaine Mpf 0.5% 30 ML VIAL (18:01)
[2020-05-11] MEDS: Heparin 10,000 UNITS/10 ML Vial 10000 UNITS (18:15)
--- NOTE | 2020-05-11 18:31 | OP.PCM_ITS ---
Problem List (1) Problem with dialysis access Status: Acute Qualifiers: Encounter type: initial encounter Qualified Code(s): T82.898A - Other specified complication of vascular prosthetic devices, implants and grafts, initial encounter Report of Operation Date of Procedure: 05/11/20 Pre-Operative Diagnosis: Malfunction peritoneal dialysis catheters in need of arteriovenous hemodialysis access Post-Operative Diagnosis: Same Surgery/Procedure Performed:: Right internal jugular 19 cm precurved palindrome catheter placement. Reference [id number]. Lot #[id number]. Expiry date 11/23/2024. Removal of peritoneal dialysis catheters Description of Surgical Findings:: Timeout and informed consent was obtained. 69-year-old gentleman was taken to the operating room. Earlier he was taken to the [facility] center. Because of the erythema at the site of his left upper sternal a transposed cephalic vein to brachial artery AV fistula and unclear whether he had a superficial wound infection or simple edema from lack of dialysis he was initiated on vancomycin therapy. He was taken the operating room underwent general anesthesia. Timeout and informed consent was obtained. The right neck chest abdomen was prepped with chlorhexidine in the peritoneal exit site with Betadine. 1% lidocaine mixed 50- 50 with 0.5% Marcaine was used as a local anesthetic. Throughout the procedure a total of 28 cc was used. Ultrasound was used to identify the right internal jugular vein local was instilled micropuncture needle inserted micropuncture wire inserted micropuncture sheath inserted an 035 J-wire inserted. Local was instilled down upon the chest wall. An exit site was selected in the 19 cm pre- Palindrome catheter was tunneled from the chest to the neck. Under fluoroscopic control serial dilatation was performed. The sheath dilator was inserted the wire and dilator removed the catheter advanced through the sheath the sheath was split fluoroscopy demonstrated good positioning. Catheters aspirated easily. They were flushed with saline and then 1.5 cc of heparinized saline per channel. Silver impregnated dressing was applied to the exit site after it was secured with 3-0 nylon. The neck site was closed with an interrupted 5-0 Vicryl subdermal stitch followed by Steri-Strips Telfa OpSite. Attention was drawn to the peritoneal dialysis catheter. A small ellipse of skin was taken at that site inferior and to the left of the umbilicus sharp blunt dissection was used to identify where the catheter penetrated the fascia this was dissected free the cuff was identified it was released the catheter was easily withdrawn back through the abdomen the anterior rectus fascia was closed with an interrupted 0 Vicryl [id number] suture. Skin edges approximated with a running subicular 5-0 Vicryl once the second cuff had been dissected free and the tubing amputated to allow from withdrawal from the exit site. The exit site simply treated with a dressing. Sponge and instrument and needle counts reported the surgeon to be correct. Blood loss minimal. Specimens none. Drains none. The patient was taken to the recovery room in satisfactory edition stat portable chest x-ray pending. Fran Wyatt M.D., F.A.C.S. Type of Anesthesia:: General Anesthesiologist: Best Duval
--- NOTE | 2020-05-11 18:45 | RAD_ITS ---
STUDY: X-RAY CHEST REASON FOR EXAM: Male, 69 years old. DIALYSIS CATHETER PLACEMENT TECHNIQUE: Single frontal view of the chest. COMPARISON: None. FINDINGS: Right dual lumen IJ catheter terminates in the superior vena cava. Sternotomy wires noted. Right upper and left lower lobe airspace disease. No pneumothorax. Normal size heart. Normal mediastinum and sky. Normal visualized pulmonary arteries. Normal visualized aortic arch and descending thoracic aorta. Normal visualized thoracic spine. Normal visualized ribs, clavicles, and shoulders. There is no demonstrated abnormality of the visualized soft tissue structures of the upper abdomen. RAD/Chest 1 View (Portable) IMPRESSION: Bilateral airspace disease. Right IJ catheter. No pneumothorax. Electronically Signed: Walt Saeed MD at 19:33 EST , Service support ,
[2020-05-11 19:01] LABS: Bedside Glucose 54 mg/dL (70-110)
[2020-05-11 19:31] LABS: Bedside Glucose 60 mg/dL (70-110)
== END 2020-05-11 19:38 | disposition home or self-care (01) ==
LOC: SDC 14:10 → AC 14:13
PROVIDERS: PCP Family Medicine; Referring Provider Surgery; Visit Provider Surgery
PROC: (CPT 36558; principal; 2020-05-11 17:45)
DX: T82.49XA Other complication of vascular dialysis catheter, initial encounter (principal); Y73.8 Miscellaneous gastroenterology and urology devices associated with adverse incidents, not elsewhere classified; E78.2 Mixed hyperlipidemia; E11.22 Type 2 diabetes mellitus with diabetic chronic kidney disease; I12.9 Hypertensive chronic kidney disease with stage 1 through stage 4 chronic kidney disease, or unspecified chronic kidney disease; N18.4 Chronic kidney disease, stage 4 (severe); I25.10 Atherosclerotic heart disease of native coronary artery without angina pectoris; Z95.1 Presence of aortocoronary bypass graft; I25.2 Old myocardial infarction; Z86.73 Personal history of transient ischemic attack (TIA), and cerebral infarction without residual deficits; Z87.19 Personal history of other diseases of the digestive system; D64.9 Anemia, unspecified; Z79.899 Other long term (current) drug therapy; Z79.82 Long term (current) use of aspirin; Z79.02 Long term (current) use of antithrombotics/antiplatelets; Z79.4 Long term (current) use of insulin; Z87.891 Personal history of nicotine dependence; Z99.2 Dependence on renal dialysis
CPT/HCPCS: 00532; 36558; 36569; 49422; 71045; 76000; 80048; 82962; 85027; 87426; J7030; C1750; J2405

== ENCOUNTER 2020-08-18 09:17 | Day surgery (SDC) | payer MEDICARE, SELFPAY ==
[2020-08-08 13:30] VITALS: BMI 31.2
--- NOTE | 2020-08-12 13:11 | EKG12_ITS ---
Test Reason : PREOP Blood Pressure : / mmHG Vent. Rate : 070 BPM Atrial Rate : 070 BPM P-R Int : 186 ms QRS Dur : 104 ms QT Int : 412 ms P-R-T Axes : 041 063 059 degrees QTc Int : 444 ms Normal sinus rhythm Normal ECG Confirmed by YASH ALVARADO, ALTAGRACIA ([id number]), editor trade journal TOMMY FOY ([id number]) on 08/15/2020 1:23:01 PM Referred By: Fran Wyatt Confirmed By:ALTAGRACIA BERRIOS MD
[2020-08-12 13:31] LABS: Hematocrit 26.3 % (40-54); Hemoglobin 8.8 g/dL (13.0-16.5); Mean Corp Hgb Conc 33.5 g/dL (32-36); Mean Corpuscular Hgb 31.2 pg (27.0-32.0); Mean Corpuscular Volume 93.3 fL (80-94); Mean Platelet Vol. 9.2 fl (6.2-12.0); Platelet Count 211 K/mm3 (150-450); RBC Distribution Width CV 14.6 % (11.6-14.6); RBC Distribution Width SD 48.8 fl (35.1-43.9); Red Blood Count 2.82 M/mm3 (4.6-6.2); White Blood Count 5.3 K/mm3 (4.4-11.0)
[2020-08-12 14:01] LABS: Anion Gap 4 (5-15); BUN 18 mg/dL (7-18); BUN/Creat Ratio 5.6 RATIO (10-20); Chloride 99 mmol/L (98-107); Creatinine, Serum 3.23 mg/dL (0.70-1.30); EST Glomerular Filtration Rate 20 mL/min (>60); Est Glom Filt Rate - Afr Amer 25 mL/min (>60); Glucose 177 mg/dL (74-106); Potassium 3.9 mmol/L (3.5-5.1); Sodium Level 137 mmol/L (136-145)
[2020-08-18] VITALS (8 sets, daily range): BP systolic 105–128; BP diastolic 64–71; PULSE 62–87; RESP 16; TEMP 36.2–36.3; O2SAT 98–100; BMI 31.4
[2020-08-18] MEDS: 0.9% Normal Saline 1,000 ML 15 ML IV (10:03)
[2020-08-18 10:21] LABS: Bedside Glucose 129 mg/dL (70-110)
--- NOTE | 2020-08-18 10:37 | PCM.HP.BLA ---
Problem List (1) Need for intravenous access Status: Acute History and Physical Date of Admission: 08/18/20 Intake Visit Reasons: DIAYLSIS CATH REMOVAL Chief Complaint: Dialysis cath removal Inter Com Installer Required: No Is patient in pain?: No Allergies Sulfa (Sulfonamide Antibiotics) Allergy (Severe, Verified 08/08/20 12:48) Rash clonidine Adverse Reaction (Severe, Verified 08/08/20 12:48) sedation Medications Aspirin [Aspirin, Baby] 81 mg PO DAILY@0800 07/06/16 [History Confirmed 08/08/20] Clopidogrel Bisulfate [Plavix] 75 mg PO DAILY 07/06/16 [History Confirmed 08/08/20] cholecalciferol (vitamin D3) 25 mcg (1,000 unit) tablet 1,000 unit PO DAILY 02/06/19 [History Confirmed 08/08/20] pantoprazole 20 mg tablet,delayed release 20 mg PO DAILY 02/06/19 [History Confirmed 08/08/20] Calcium Acetate 667 mg PO PRN PRN 04/19/20 [History Confirmed 08/08/20] Metoprolol Succinate [Toprol Xl] 50 mg PO DAILY 04/19/20 [History Confirmed 08/08/20] Renal Caps Softgel 1 cap PO DAILY 04/19/20 [History Confirmed 08/08/20] furosemide 40 mg tablet 40 mg PO BID 06/13/20 [History Confirmed 08/08/20] glimepiride 1 mg tablet 1 mg PO BID tab 06/13/20 [History Confirmed 08/08/20] omega-3 fatty acids 1,000 mg capsule 2,000 mg PO BID cap 06/13/20 [History Confirmed 08/08/20] rosuvastatin 20 mg tablet 20 mg PO QHS tab 06/13/20 [History Confirmed 08/08/20] [facility] Medical History Need for intravenous access (Acute) Problem with dialysis access (Acute) Mixed hyperlipidemia (Chronic) CKD (chronic kidney disease) stage 4, GFR 15-29 ml/min (Chronic) Type 2 diabetes mellitus (Chronic) Essential hypertension (Chronic) 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) Anemia (Acute) Lung nodule (Acute) Scrotal edema (Acute) History of gastric ulcer (Resolved) History of left heart catheterization (LHC) (Resolved ~2000) Myocardial infarct (Resolved) TIA (transient ischemic attack) (Resolved) Surgical History History of coronary artery bypass surgery (Chronic ~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 Fran Wyatt MD) alcohol intake: never substance use type: does not use caffeine: Yes Type: coffee Number of servings: 3 HPI HPI HPI: ELISSA POWER, is a 70 M who presents to the office today for removal of his right internal jugular tunneled dialysis catheter. The patient is getting treated for a lung tumor. He additionally has need for IV access in the form of a port. He has a left upper arm transposed cephalic vein to brachial artery AV fistula. It apparently is working well. HPI HPI HPI: ELISSA POWER, is a 70 M who presents to the office today for ROS General General: Yes fatigue; no weight change, appetite, colon cancer, breast cancer or weakness HEENT HEENT: No difficulty swallowing, eye injury, eye surgery, swollen glands or hoarseness Endo Endocrine: Yes diabetes mellitus; no thyroid disease, thyroid cancer, Hair loss, heat intolerance or cold intolerance Skin Skin: No rash or changing moles Breast Breast: No left breast lump, right breast lump, nipple discharge, breast pain, abnormal mammogram, abnormal US or breast enlargement Musc Musculoskeletal: No back problems, arthritis, rheumatoid arthritis, gout or joint pain Cardio Cardiovascular: Yes heart disease, high blood pressure, heart attack and heart stent; no murmur, pacemaker, atrial fibrillation, palpitations, shortness of breat with exertion or chest pain Psych Psychiatric: No depression, anxiety or hearing voices Resp Respiratory: Yes shortness of breath, No sleep apnea, Yes cough, No COPD, No asthma, No emphysema, No wheezing Gastro Gastrointestinal: No abdominal pain, No nausea or vomiting, No diarrhea, No constipation, No blood in stool, No acid reflux, Yes hemorrhoids, Yes ulcers, No gallbladder problem, No black,tarry stools Jesus Hematologic: Yes blood thinners, No blood disorders, No bleeding, No anemia, No blood clots Neuro Neurologic: No system reviewed and no additional complaints, except as docu, No as per HPI, No abnormal walking, No abnormal hearing, No abnormal movements, No abnormal speech, No behavioral changes, No burning sensations, No confusion, No seizure-like activity, No unsteadiness, No dizziness, No localized weakness, No frequent falls, No headache(s), No lack of coordination, No loss of vision, No memory loss, No numbness, No other visual disturbances, No radiating pain, No restless legs, No sensory deficit, No fainting, No tingling, No tremor(s), No weakness, No other Exam Const General: cooperative, comfortable, no acute distress Nutritional Appearance: average body habitus HENMT Head: normal to inspection Chest Breast Palpation: No nipple discharge Resp Effort & Inspection: normal respiratory effort Auscultation: clear to auscultation bilaterally Cardio Rate: regular rate Rhythm: regular rhythm Heart Sounds: no murmurs GI Palpation: soft Extrem Other: Left upper arm transposed cephalic vein to brachial artery AV fistula with pulse and thrill and bruit Mild to moderate bilateral extremity swelling Office Procedures Port/Cath Removal Provider Documentation Details:: Procedure note Removal right internal jugular tunneled dialysis catheter Timeout and informed consent was obtained. The patient was taken the procedure room placed upon the table. The neck, chest, catheter site was sterilely prepped and draped. 1% lidocaine mixed 50-50 with 0.5% Marcaine was used as a local anesthetic. A total of 8 cc was used. A small transverse counter incision was made directly over the cuff. Sharp and blunt dissection was used to release the cuff. Direct pressure was held upon the catheter site as the tubing was removed. The cuff was completely released. The counterincision was closed with interrupted 3-0 chromic subdermal sutures. The catheter was then completely removed. The counterincision site was closed with Skin-Prep and Steri-Strips and Telfa OpSite. The patient was given activity wound care instructions. Further office follow-up can be as needed. The catheter was inspected it was noted to be intact and was subsequently discarded. Blood loss was minimal and the patient tolerated this well. Fran Wyatt M.D., F.A.C.S. Port/Peg Port/Pe Dialysis Cath Remov Procedure Time Out Time Out Informed consent given: Yes Consent signed: Yes Time out checklist: patient, procedure, site marked/identified, positioning of patient, supplies available, allergies confirmed, team agrees on procedure Time out staff in room: Yes Time out verified: Yes Time out date: 08/08/20 Time out time: 13:00 Assessment & Plan Problems 1. Problem with dialysis access, initial encounter T82.898A 2. Need for intravenous access Plan Successful removal right internal jugular tunneled dialysis catheter. Adequately functioning left upper arm transposed cephalic vein to brachial artery AV fistula. He is need for IV access to continue chemotherapy for pulmonary tumor. Because of his left upper arm AV fistula I propose a right internal jugular port placement. He is aware of the technique, benefit, risk and alternatives. We have attempted to contact the patient's out-of-town halftone operator oncologist. We have not been able today to obtain a definitive result. We tentatively will schedule the patient for right internal jugular port placement once his dialysis catheter site has resolved. We will await recontact [place] [facility] onc[facility] We will have him hold his Plavix 3 days preprocedure. I appreciate the ongoing opportunity assisting with his surgical care. Fran Wyatt M.D., F.A.C.S. Orders Orders: Port/Cath Removal Today T82.898A Coding Level of Care Code Attention Plastic Roller Diagnoses Problem with dialysis access, initial encounter T82.898A ??Encounter type: initial encounter Need for intravenous access I have re-examined the patient. There are no clinical changes since date of exam. Procedure Criteria Procedure Type: Elective COVID Risk Discussion: The surgeon/proceduralist and patient have discussed in detail the risk of exposure to and/or potential harm posed by the COVID-19 virus with having a surgery/procedure at this time versus the risk of delaying the surgery/procedure. It is not possible to know either the risk of delaying the surgery or procedure or chance of getting an infection with perfect accuracy, but a joint decision was made between the patient and the surgeon/proceduralist to proceed at this time with the scheduled surgery/procedure as indicated on the consent form.
[2020-08-18] MEDS: Cefazolin 2 GM in 0.9% Normal Saline 100 ML IV (11:36)
--- NOTE | 2020-08-18 11:43 | DCINST_ITS ---
Discharge Diet: No Restrictions - Pain medication may cause nausea. You should typically eat light foods as you take your pain medication., Renal Diet Discharge Activity: Return to Normal Activity, May Shower - Leave the bandage on for 2-3 days. When you remove the bandage, leave the steri-strips intact until they fall off. Additional Dressing/Incision Instructions:: Leave the bandage on for 3-4 days. When you remove the bandage, leave the steri-strips intact for one week Allergies/Adverse Reactions: Allergies Sulfa (Sulfonamide Antibiotics) Allergy (Severe, Verified 08/18/20 09:34) Rash clonidine Adverse Reaction (Severe, Verified 08/18/20 09:34) sedation Medications to take at Discharge Aspirin [Aspirin, Baby] 81 mg PO DAILY@0800 07/06/16 Clopidogrel Bisulfate [Plavix] 75 mg PO DAILY 07/06/16 cholecalciferol (vitamin D3) 25 mcg (1,000 unit) tablet 1,000 unit PO DAILY 02/06/19 pantoprazole 20 mg tablet,delayed release 20 mg PO DAILY 02/06/19 Calcium Acetate 667 mg PO PRN PRN 04/19/20 Metoprolol Succinate [Toprol Xl] 50 mg PO DAILY 04/19/20 Renal Caps Softgel 1 cap PO DAILY 04/19/20 furosemide 40 mg tablet 40 mg PO BID 06/13/20 glimepiride 1 mg tablet 2 mg PO BID tab 06/13/20 omega-3 fatty acids 1,000 mg capsule 2,000 mg PO BID cap 06/13/20 rosuvastatin 20 mg tablet 20 mg PO QHS tab 06/13/20 Primary Care Physician: Santosh Tavarez DO [Primary Care Provider] - Test Results: Test results from this visit will be discussed in further detail at your follow- up appointment, if applicable. Please Follow Up With: Fran Wyatt MD - [phone] When: Office follow-up may be as needed
[2020-08-18] MEDS: Lidocaine 1% (30 ml sdv) 30 ML Vial (11:53)
[2020-08-18] MEDS: Bupivacaine Mpf 0.5% 30 ML VIAL (11:53)
--- NOTE | 2020-08-18 12:33 | RAD_ITS ---
STUDY: X-RAY CHEST REASON FOR EXAM: Male, 70 years old. POST PORT PLACEMENT TECHNIQUE: Single AP portable view of the chest. COMPARISON: 05/11/2020 FINDINGS: Mediport is seen on the right side its tip is at the cavoatrial junction. There is a right lung upper lobe mass measures approximately 3 cm in greatest diameter. There is a small left pleural effusion with subsegmental atelectasis in the left lung base. Normal size heart. Normal mediastinum and sky. Normal visualized pulmonary arteries. Normal visualized aortic arch and descending thoracic aorta. There are diffuse degenerative changes of the visualized thoracic spine. Normal visualized ribs, clavicles, and shoulders. There is no demonstrated abnormality of the visualized soft tissue structures of the upper abdomen. RAD/Chest 1 View (Portable) IMPRESSION: There is a right lung upper lobe mass measures approximately 3 cm in greatest diameter. There is a small left pleural effusion with subsegmental atelectasis in the left lung base. Electronically Signed: Mehrdad Soto MD at 13:55 EST Tel , Service support ,
--- NOTE | 2020-08-18 12:33 | OP.PCM_ITS ---
Problem List (1) Need for intravenous access Status: Acute Report of Operation Date of Procedure: 08/18/20 Pre-Operative Diagnosis: Need of IV access to pursue chemotherapy Post-Operative Diagnosis: Same Surgery/Procedure Performed:: Right internal jugular 6 Armenian PowerPort placement Description of Surgical Findings:: Timeout and informed consent was obtained. 70-year-old gentleman was taken to the operating place upon the table underwent monitored anesthesia care. Ancef 2 g were given intravenously. The right neck and chest were sterilely prepped and draped. 1% lidocaine mixed 50-50 with 0.5% Marcaine was used as a local anesthetic. A total of 15 cc was used. Under ultrasound guidance local was instilled in the right neck and a micropuncture needle was inserted in the right internal jugular vein followed by Seldinger wire. Local was instilled down upon the right chest wall. A transverse incision was made midclavicular line second intercostal space. Electrocautery was then used to make a subcutaneous pocket. The tubing from the 6 Armenian port was tunneled from the chest to the neck site. Sheath dilator was placed over the wire. The wire dilator removed. 035 J-wire was inserted. Fluoroscopy demonstrated good positioning. Sheath dilator was inserted. The wire dilator removed. The catheters advanced through the sheath. The sheath was split. Using Isovue contrast total of 10 cc was used to help urinate the catheter in place the tip very close to the SVC atrial junction. There appeared to be good aspiration on the catheter it was flushed with saline and then flushed with heparinized saline. The catheter was shortened in length connected the port and secured there with a port attachment device. The port was placed in the pocket and secured there with 2-0 silk. Skin edges approximated with two 3-0 Vicryl subdermal stitch. Steri-Strips Telfa OpSite dressings applied. The port was accessed and aspirated and flushed easily and was flushed with heparinized saline. The neck site was closed interrupted 5-0 Vicryl subdermal stitch. Steri-Strips Telfa OpSite dressings applied. Sponge and instrument and needle counts were reported to surgically correct. Specimens none. Drains none. Blood loss minimal. The patient was taken to the recovery area in satisfactory vision without apparent complication Fran Wyatt M.D., F.A.C.S. Type of Anesthesia:: Local MAC Anesthesiologist: Chung Penaloza
--- NOTE | 2020-08-18 13:02 | SUR.PHASEI ---
AT APPROXIMATELY 1255, DR Yuli DOSS VERIFIED THE PORT WAS IN THE CORRECT POSITION AFTER READING THE PORTABLE CHEST X-RAY.
== END 2020-08-18 13:30 | disposition home or self-care (01) ==
LOC: SDC 09:18 → AC 09:20
PROVIDERS: PCP Family Medicine; Referring Provider Surgery; Visit Provider Surgery
PROC: (CPT 36561; principal; 2020-08-18 11:15)
DX: Z45.2 Encounter for adjustment and management of vascular access device (principal); K21.9 Gastro-esophageal reflux disease without esophagitis; E78.2 Mixed hyperlipidemia; E11.22 Type 2 diabetes mellitus with diabetic chronic kidney disease; C34.90 Malignant neoplasm of unspecified part of unspecified bronchus or lung; C78.7 Secondary malignant neoplasm of liver and intrahepatic bile duct; C77.9 Secondary and unspecified malignant neoplasm of lymph node, unspecified; I12.9 Hypertensive chronic kidney disease with stage 1 through stage 4 chronic kidney disease, or unspecified chronic kidney disease; N18.4 Chronic kidney disease, stage 4 (severe); I25.10 Atherosclerotic heart disease of native coronary artery without angina pectoris; I25.2 Old myocardial infarction; Z20.828 Contact with and (suspected) exposure to other viral communicable diseases; Z79.899 Other long term (current) drug therapy; Z79.02 Long term (current) use of antithrombotics/antiplatelets; Z79.82 Long term (current) use of aspirin; Z79.84 Long term (current) use of oral hypoglycemic drugs; Z86.73 Personal history of transient ischemic attack (TIA), and cerebral infarction without residual deficits; Z87.11 Personal history of peptic ulcer disease; Z95.1 Presence of aortocoronary bypass graft; Z87.891 Personal history of nicotine dependence
CPT/HCPCS: 00532; 36561; 36415; 71045; 77001; 80048; 82962; 85027; 87426; 93005; C9803; J7030; J7120; J2405

== ENCOUNTER 2020-08-26 09:14 | Day surgery (SDC) | payer MEDICARE, SELFPAY ==
[2020-08-18 09:37] VITALS: BMI 31.4
[2020-08-25 07:38] VITALS: BMI 31.2
[2020-08-26 09:42] LABS: Anion Gap 10 (5-15); BUN 68 mg/dL (7-18); BUN/Creat Ratio 10.6 RATIO (10-20); Calcium,Total 8.8 mg/dL (8.5-10.1); Chloride 100 mmol/L (98-107); Creatinine, Serum 6.42 mg/dL (0.70-1.30); EST Glomerular Filtration Rate 9 mL/min (>60); Est Glom Filt Rate - Afr Amer 11 mL/min (>60); Glucose 138 mg/dL (74-106); Potassium 4.5 mmol/L (3.5-5.1); Sodium Level 137 mmol/L (136-145)
--- NOTE | 2020-08-26 10:23 | PCM.HP.BLA ---
Problem List (1) Problem with dialysis access Status: Acute Qualifiers: Encounter type: initial encounter History and Physical Date of Admission: 08/26/20 Intake Visit Reasons: DIAYLSIS CATH REMOVAL Chief Complaint: Dialysis cath removal [employer] Science [employer] Chair Required: No Is patient in pain?: No Allergies Sulfa (Sulfonamide Antibiotics) Allergy (Severe, Verified 08/08/20 12:48) Rash clonidine Adverse Reaction (Severe, Verified 08/08/20 12:48) sedation Medications Aspirin [Aspirin, Baby] 81 mg PO DAILY@0800 07/06/16 [History Confirmed 08/08/20] Clopidogrel Bisulfate [Plavix] 75 mg PO DAILY 07/06/16 [History Confirmed 08/08/20] cholecalciferol (vitamin D3) 25 mcg (1,000 unit) tablet 1,000 unit PO DAILY 02/06/19 [History Confirmed 08/08/20] pantoprazole 20 mg tablet,delayed release 20 mg PO DAILY 02/06/19 [History Confirmed 08/08/20] Calcium Acetate 667 mg PO PRN PRN 04/19/20 [History Confirmed 08/08/20] Metoprolol Succinate [Toprol Xl] 50 mg PO DAILY 04/19/20 [History Confirmed 08/08/20] Renal Caps Softgel 1 cap PO DAILY 04/19/20 [History Confirmed 08/08/20] furosemide 40 mg tablet 40 mg PO BID 06/13/20 [History Confirmed 08/08/20] glimepiride 1 mg tablet 1 mg PO BID tab 06/13/20 [History Confirmed 08/08/20] omega-3 fatty acids 1,000 mg capsule 2,000 mg PO BID cap 06/13/20 [History Confirmed 08/08/20] rosuvastatin 20 mg tablet 20 mg PO QHS tab 06/13/20 [History Confirmed 08/08/20] [facility] Medical History Need for intravenous access (Acute) Problem with dialysis access (Acute) Mixed hyperlipidemia (Chronic) CKD (chronic kidney disease) stage 4, GFR 15-29 ml/min (Chronic) Type 2 diabetes mellitus (Chronic) Essential hypertension (Chronic) Atherosclerotic heart disease of [place] coronary artery without angina pectoris (Chronic) Anemia (Acute) Lung nodule (Acute) Scrotal edema (Acute) History of gastric ulcer (Resolved) History of left heart catheterization (LHC) (Resolved ~2000) Myocardial infarct (Resolved) TIA (transient ischemic attack) (Resolved) Surgical History History of coronary artery bypass surgery (Chronic ~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 Fran Wyatt MD) alcohol intake: never substance use type: does not use caffeine: Yes Type: coffee Number of servings: 3 HPI HPI HPI: ELISSA POWER, is a 70 M who presents to the office today for removal of his right internal jugular tunneled dialysis catheter. The patient is getting treated for a lung tumor. He additionally has need for IV access in the form of a port. He has a left upper arm transposed cephalic vein to brachial artery AV fistula. It apparently is working well. HPI HPI HPI: ELISSA POWER, is a 70 M who presents to the office today for ROS General General: Yes fatigue; no weight change, appetite, colon cancer, breast cancer or weakness HEENT HEENT: No difficulty swallowing, eye injury, eye surgery, swollen glands or hoarseness Endo Endocrine: Yes diabetes mellitus; no thyroid disease, thyroid cancer, Hair loss, heat intolerance or cold intolerance Skin Skin: No rash or changing moles Breast Breast: No left breast lump, right breast lump, nipple discharge, breast pain, abnormal mammogram, abnormal US or breast enlargement Musc Musculoskeletal: No back problems, arthritis, rheumatoid arthritis, gout or joint pain Cardio Cardiovascular: Yes heart disease, high blood pressure, heart attack and heart stent; no murmur, pacemaker, atrial fibrillation, palpitations, shortness of breat with exertion or chest pain Psych Psychiatric: No depression, anxiety or hearing voices Resp Respiratory: Yes shortness of breath, No sleep apnea, Yes cough, No COPD, No asthma, No emphysema, No wheezing Gastro Gastrointestinal: No abdominal pain, No nausea or vomiting, No diarrhea, No constipation, No blood in stool, No acid reflux, Yes hemorrhoids, Yes ulcers, No gallbladder problem, No black,tarry stools Jesus Hematologic: Yes blood thinners, No blood disorders, No bleeding, No anemia, No blood clots Neuro Neurologic: No system reviewed and no additional complaints, except as docu, No as per HPI, No abnormal walking, No abnormal hearing, No abnormal movements, No abnormal speech, No behavioral changes, No burning sensations, No confusion, No seizure-like activity, No unsteadiness, No dizziness, No localized weakness, No frequent falls, No headache(s), No lack of coordination, No loss of vision, No memory loss, No numbness, No other visual disturbances, No radiating pain, No restless legs, No sensory deficit, No fainting, No tingling, No tremor(s), No weakness, No other Exam Const General: cooperative, comfortable, no acute distress Nutritional Appearance: average body habitus HENMT Head: normal to inspection Chest Breast Palpation: No nipple discharge Resp Effort & Inspection: normal respiratory effort Auscultation: clear to auscultation bilaterally Cardio Rate: regular rate Rhythm: regular rhythm Heart Sounds: no murmurs GI Palpation: soft Extrem Other: Left upper arm transposed cephalic vein to brachial artery AV fistula with pulse and thrill and bruit Mild to moderate bilateral extremity swelling Office Procedures Port/Cath Removal Provider Documentation Details:: Procedure note Removal right internal jugular tunneled dialysis catheter Timeout and informed consent was obtained. The patient was taken the procedure room placed upon the table. The neck, chest, catheter site was sterilely prepped and draped. 1% lidocaine mixed 50-50 with 0.5% Marcaine was used as a local anesthetic. A total of 8 cc was used. A small transverse counter incision was made directly over the cuff. Sharp and blunt dissection was used to release the cuff. Direct pressure was held upon the catheter site as the tubing was removed. The cuff was completely released. The counterincision was closed with interrupted 3-0 chromic subdermal sutures. The catheter was then completely removed. The counterincision site was closed with Skin-Prep and Steri-Strips and Telfa OpSite. The patient was given activity wound care instructions. Further office follow-up can be as needed. The catheter was inspected it was noted to be intact and was subsequently discarded. Blood loss was minimal and the patient tolerated this well. Fran Wyatt M.D., F.A.C.S. Port/Peg Port/Pe Dialysis Cath Remov Procedure Time Out Time Out Informed consent given: Yes Consent signed: Yes Time out checklist: patient, procedure, site marked/identified, positioning of patient, supplies available, allergies confirmed, team agrees on procedure Time out staff in room: Yes Time out verified: Yes Time out date: 08/08/20 Time out time: 13:00 Assessment & Plan Problems 1. Problem with dialysis access, initial encounter T82.898A 2. Need for intravenous access Plan Successful removal right internal jugular tunneled dialysis catheter. Adequately functioning left upper arm transposed cephalic vein to brachial artery AV fistula. He is need for IV access to continue chemotherapy for pulmonary tumor. Because of his left upper arm AV fistula I propose a right internal jugular port placement. He is aware of the technique, benefit, risk and alternatives. We have attempted to contact the patient's out-of-town sales forecast analyst oncologist. We have not been able today to obtain a definitive result. We tentatively will schedule the patient for right internal jugular port placement once his dialysis catheter site has resolved. We will await recontact [place] hematology oncology We will have him hold his Plavix 3 days preprocedure. I appreciate the ongoing opportunity assisting with his surgical care. Fran Wyatt M.D., F.A.C.S. Orders Orders: Port/Cath Removal Today T82.898A Coding Level of Care Code Attention Shawn Diagnoses Problem with dialysis access, initial encounter T82.898A ??Encounter type: initial encounter Need for intravenous access I have re-examined the patient. There are no clinical changes since date of exam., plan to proceed with a left upper extremity fistulogram with endovascular intervention. Procedure Criteria Procedure Type: Elective COVID Risk Discussion: The surgeon/proceduralist and patient have discussed in detail the risk of exposure to and/or potential harm posed by the COVID-19 virus with having a surgery/procedure at this time versus the risk of delaying the surgery/procedure. It is not possible to know either the risk of delaying the surgery or procedure or chance of getting an infection with perfect accuracy, but a joint decision was made between the patient and the surgeon/proceduralist to proceed at this time with the scheduled surgery/procedure as indicated on the consent form.
--- NOTE | 2020-08-26 11:03 | OP.PCM_ITS ---
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 70-year-old gentleman was taken to the special procedures lab placed upon the table. The left upper extremity was sterilely prepped and draped. 50 mcg of fentanyl and 1 mg Versed were given as intravenous sedation. Ultrasound was performed demonstrating that the brachial artery venous anastomosis was widely patent. The very proximal portion of the fistula widely patent. Under ultrasound guidance 2% lidocaine was instilled as a local anesthetic. Ultrasound guidance was used to place a micropuncture needle antegrade with flow closer to the arterial anastomosis. Micropuncture wire inserted 6 [place] short sheath dilator inserted. Using Isovue contrast a fistulogram was dictation of the left upper semi-. This demonstrated that within the AV fistula at the distal curvature where the basilic vein was coursing back to its normal anatomic position there was high-grade venous stenosis of at least 80% over approximately a 5 cm length. I was able to advance a Glidewire past this area. I inserted a 6x4 ConQuest balloon and balloon angioplasty was performed with 3 separate insufflations up to 35 davina of pressure. I then completed the fistulogram with views more centrally. He had responded very well to the angioplasty. Wire and balloons were removed. The sheath was removed. A U suture of 4-0 nylon was placed. He was taken to the recovery area in satisfactory condition. Fistulogram demonstrates a nicely patent left upper extremity transposed basilic vein to brachial artery AV fistula with a patent arterial anastomosis and proximal portion of the fistula. In the more distal part of the fistula where it curves back toward the [place] positioning of the basilic vein there was about a 5 cm area of high-grade venous stenosis of approximately 80%. There is good central venous outflow. Subsequent to the 6 x 4 [employer] angioplasty there is complete resolution of the area of stenosis. Specimens none. Drains none. Blood loss minimal. Fran Wyatt M.D., F.A.C.S. Type of Anesthesia:: IV Sedation, Local
== END 2020-08-26 12:00 | disposition home or self-care (01) ==
LOC: CLSP 09:16
PROVIDERS: PCP Family Medicine; Referring Provider Surgery; Visit Provider Surgery
DX: T82.898A Other specified complication of vascular prosthetic devices, implants and grafts, initial encounter (principal); E11.22 Type 2 diabetes mellitus with diabetic chronic kidney disease; N18.4 Chronic kidney disease, stage 4 (severe); E78.2 Mixed hyperlipidemia; I12.9 Hypertensive chronic kidney disease with stage 1 through stage 4 chronic kidney disease, or unspecified chronic kidney disease; I25.10 Atherosclerotic heart disease of native coronary artery without angina pectoris; I25.2 Old myocardial infarction; Z79.02 Long term (current) use of antithrombotics/antiplatelets; Z79.899 Other long term (current) drug therapy; Z79.82 Long term (current) use of aspirin; Y82.8 Other medical devices associated with adverse incidents
CPT/HCPCS: 36415; 36902; 76937; 80048; 99152; 99153; Q9967; A4216; C1725; C1769

== ENCOUNTER → 2021-04-07 12:44 | Outpatient (CLI) | payer MEDICARE, SELFPAY ==
--- NOTE | 2021-04-07 12:46 | VDUE_ITS ---
Reason For Study: Failed AV fistula Right Arm Left Arm Right Cephalic Vein at the wrist measures Left Cephalic Vein at the wrist measures 0.17 0.15 x 0.16 cm. x 0.18 cm. Right Cephalic Vein in the forearm measures Left Cephalic Vein in the forearm measures 0.13 x 0.13 cm. 0.19 x 0.19 cm. Right Cephalic Vein below antecub measures Left Cephalic Vein below antecub measures 0.17 0.14 x 0.15 cm. x 0.17 cm. Right Cephalic Vein above antecub measures Failed left brachiocephalic fistula noted in 0.20 x 0.22 cm. the upper arm. Right Cephalic Vein mid bicep measures 0.19 Cephalic vein is thrombosed from anastamosis x 0.18 cm. to prox bicep. Right Cephalic Vein at the shoulder Cephalic vein at shoulder is compressible. measures 0.27 x 0.27 cm. Basilic vein at origin measures 0.41 x 0.41 Right Basilic Vein at the origin measures cm. 0.21 x 0.19 cm. Basilic vein at bicep measures 0.45 x 0.47 cm. Right Basilic Vein mid bicep measures 0.19 Basilic vein above antecub measures 0.41 x x 0.18 cm. 0.42 cm. Right Basilic Vein above antecub measures Left Brachial artery measures 0.49 x 0.50 cm 0.16 x 0.15 cm. with a velocity of 85 cm/sec. Right Brachial artery measures 0.55 x 0.53 Left Radial artery measures 0.19 x 0.20 cm cm with a velocity of 92.1 cm/sec. with a velocity if 125.2 cm/sec. Right Radial artery measures 0.26 x 0.25 cm with a velocity of 118 cm/sec. VL/Saphenous Vein Mapping, Bilat Interpretation Summary Patent and compressible right upper extremity cephalic and basilic veins althou gh diminutive throughout. Normal diameter and flow right brachial and radial arteries Superficial thrombophlebitis left upper arm brachiocephalic arteriovenous hemod ialysis fistula from its origin to the proximal bicep area. The left cephalic vein at the shoulder i s compressible. The left upper arm basilic vein is patent and compressible and of normal diamet er The left radial artery is small but the left brachial artery is of normal diame ter and flow Ordering Physician: Suad Dempsey Referring Physician: Santosh Tavarez Performed By: Shanika Pisano RVT ?
== END ==
PROVIDERS: PCP Family Medicine; Referring Provider Physician Assistant; Visit Provider Physician Assistant
DX: T82.590A Other mechanical complication of surgically created arteriovenous fistula, initial encounter (principal); T82.898A Other specified complication of vascular prosthetic devices, implants and grafts, initial encounter; N17.9 Acute kidney failure, unspecified; N18.9 Chronic kidney disease, unspecified
CPT/HCPCS: 93970

== ENCOUNTER 2021-06-15 08:44 | Day surgery (SDC) | payer MEDICARE, SELFPAY ==
--- NOTE | 2021-06-09 13:44 | EKG12_ITS ---
Test Reason : PREOP Blood Pressure : / mmHG Vent. Rate : 065 BPM Atrial Rate : 065 BPM P-R Int : 208 ms QRS Dur : 104 ms QT Int : 452 ms P-R-T Axes : 041 042 048 degrees QTc Int : 470 ms Normal sinus rhythm Normal ECG Confirmed by ANATOLIY ALVARADO, FAITH ([id number]), production editor TOMMY FOY ([id number]) on 06/12/2021 2:03:32 PM Referred By: Fran Wyatt Confirmed By:FAITH COPE MD
[2021-06-09 15:33] LABS: Mean Corp Hgb Conc 31.7 g/dL (32-36); Mean Corpuscular Volume 88.4 fL (80-94); Mean Platelet Vol. 8.8 fl (6.2-12.0); Platelet Count 155 K/mm3 (150-450); RBC Distribution Width CV 14.9 % (11.6-14.6); RBC Distribution Width SD 48.4 fl (35.1-43.9); Red Blood Count 4.64 M/mm3 (4.6-6.2); White Blood Count 10.4 K/mm3 (4.4-11.0)
[2021-06-09 16:34] LABS: Anion Gap 6 (5-15); BUN 23 mg/dL (7-18); BUN/Creat Ratio 5.8 RATIO (10-20); Calcium,Total 8.5 mg/dL (8.5-10.1); Chloride 94 mmol/L (98-107); Creatinine, Serum 3.95 mg/dL (0.70-1.30); EST Glomerular Filtration Rate 16 mL/min (>60); Est Glom Filt Rate - Afr Amer 19 mL/min (>60); Glucose 190 mg/dL (74-106); Potassium 4.1 mmol/L (3.5-5.1); Sodium Level 133 mmol/L (136-145)
[2021-06-15] VITALS (7 sets, daily range): BP systolic 154–182; BP diastolic 80–93; PULSE 58–66; RESP 13–98; TEMP 35.9–36.4; O2SAT 93–96; BMI 31.3
[2021-06-15] MEDS: Lactated Ringers 1,000 ML 15 ML IV (09:05)
[2021-06-15 09:21] LABS: Bedside Glucose 90 mg/dL (70-110)
[2021-06-15] MEDS: 0.9% Normal Saline 1,000 ML 15 ML IV (10:00)
--- NOTE | 2021-06-15 10:19 | HP.PCM_ITS ---
History and Physical Date of Admission: 06/15/21 Intake Visit Reasons: UPDATE H& P, EVAL BP, HANDS Chief Complaint: update H&P for creation fistula Smoke Tester Required: No Is patient in pain?: No Allergies Sulfa (Sulfonamide Antibiotics) Allergy (Severe, Verified 05/23/21 14:07) Rash clonidine Adverse Reaction (Severe, Verified 05/23/21 14:07) sedation Medications aspirin 81 mg PO DAILY@0800 07/06/16 [History Confirmed 05/23/21] clopidogrel 75 mg PO DAILY 07/06/16 [History Confirmed 05/23/21] cholecalciferol (vitamin D3) 25 mcg (1,000 unit) tablet 1,000 unit PO DAILY 02/06/19 [History Confirmed 05/23/21] pantoprazole 20 mg tablet,delayed release 20 mg PO DAILY 02/06/19 [History Confirmed 05/23/21] furosemide 40 mg tablet 40 mg PO BID 06/13/20 [History Confirmed 05/23/21] omega-3 fatty acids 1,000 mg capsule 2,000 mg PO BID cap 06/13/20 [History Confirmed 05/23/21] rosuvastatin 20 mg tablet 20 mg PO QHS tab 06/13/20 [History Confirmed 05/23/21] calcium acetate(phosphat bind) 667 mg capsule 667 mg PO TID PRN cap 01/30/21 [History Confirmed 05/23/21] docusate sodium 100 mg capsule 100 mg PO BID 01/30/21 [History Confirmed 05/23/21] glimepiride 1 mg tablet 2 mg PO BID tab 01/30/21 [History Confirmed 05/23/21] losartan 100 mg tablet 100 mg PO DAILY 01/30/21 [History Confirmed 05/23/21] metoprolol succinate 100 mg tablet,extended release 24 hr 100 mg PO DAILY 01/30/21 [History Confirmed 05/23/21] ondansetron HCl 4 mg tablet 8 mg PO TID tab 01/30/21 [History Confirmed 05/23/21] prochlorperazine maleate 10 mg tablet 10 mg PO Q8H PRN 01/30/21 [History Confirmed 05/23/21] topotecan 4 mg intravenous solution 0.4 mg INTRATHECAL .2Xmonth ea 01/30/21 [History Confirmed 05/23/21] vitamin B complex 1 tab PO DAILY 01/30/21 [History Confirmed 05/23/21] [facility] Medical History (Updated 05/23/21 @ 16:03 by Suad ROSARIO PA-C) Anemia Atherosclerotic heart disease of [place] coronary artery without angina pectoris CKD (chronic kidney disease) stage 4, GFR 15-29 ml/min Essential hypertension History of gastric ulcer History of left heart catheterization (LHC) (~2000) Lung cancer Lung nodule Mixed hyperlipidemia Myocardial infarct Need for intravenous access Problem with dialysis access Renal failure (ARF), acute on chronic Scrotal edema Stage 5 chronic kidney disease TIA (transient ischemic attack) Type 2 diabetes mellitus Surgical History history AV fistula left arm (~04/27/20) history insertion tunneled dialysis catheter (~05/11/20) History of coronary artery bypass surgery (~08/08/18) History of toe surgery History of tonsillectomy history removal peritoneal dialysis catheter (~05/11/20) S/P dialysis catheter insertion Family History Mother Hypertension Father Congestive heart failure Social History Smoking Status: Former smoker alcohol intake: never substance use type: does not use caffeine: Yes Type: coffee Number of servings: 3 HPI HPI HPI: ELISSA POWER, is a 70 M who presents to the office today for an update history and physical. Patient denies recent hospitalization or illnesses. He notes his hands have greatly improved. Dr. zAar has changed his blood pressure medication and since that time, his blood pressure has improved. Patient is currently on dialysis M,W, and F. Patient's previous history per Dr. Wyatt: ELISSA POWER, is a 70 M who presents to the office today for surgical consultation regarding creation of arteriovenous hemodialysis fistula. On August 26, 2020 because of bleeding from a left upper extremity transposed cephalic vein to brachial artery AV fistula I performed a left upper extremity fistulogram with a 6 x 4 conquest angioplasty. The high-grade venous stenosis was in the more distal portion of the fistula in the upper arm where the cephalic vein curve back to its anastomotic position. There otherwise was good central venous outflow. It is of note that I had created his transposition left upper arm cephalic vein to brachial artery AV fistula on April 27, 2020. He has previously had peritoneal dialysis catheters that have failed as well. The patient is undergoing chemotherapy for right lung cancer. He has dramatic swelling and blistering and erythema of all digits of both hands. He is currently being dialyzed through right internal jugular tunneled dialysis catheters Placed elsewhere The patient is referred back by Dr. Roshni Azar for surgical consultation re garding additional arteriovenous hemodialysis fistula creation of a compromise surgical consult recommendations will return to her. ROS General General: Yes fatigue; No weight change, appetite, colon cancer, breast cancer or weakness HEENT HEENT: No difficulty swallowing, eye injury, eye surgery, swollen glands or hoarseness Endo Endocrine: Yes diabetes mellitus; No thyroid disease, thyroid cancer, Hair loss, heat intolerance or cold intolerance Skin Skin: No rash or changing moles Breast Breast: No left breast lump, right breast lump, nipple discharge, breast pain, abnormal mammogram, abnormal US or breast enlargement Musc Musculoskeletal: Yes arthritis; No back problems, rheumatoid arthritis, gout or joint pain Cardio Cardiovascular: Yes heart disease, high blood pressure and heart stent; No murmur, pacemaker, atrial fibrillation, heart attack, palpitations, shortness of breat with exertion or chest pain Psych Psychiatric: No depression, anxiety or hearing voices Resp Respiratory: Yes shortness of breath, Yes sleep apnea, Yes cough, No COPD, No asthma, No emphysema and No wheezing Gastro Gastrointestinal: No abdominal pain, No nausea or vomiting, No diarrhea, No constipation, No blood in stool, No acid reflux, Yes hemorrhoids, Yes ulcers, No gallbladder problem and No black,tarry stools Jesus Hematologic: Yes blood thinners, No blood disorders, Yes bleeding, Yes anemia and No blood clots Neuro Neurologic: No system reviewed and no additional complaints, except as documented, No as per HPI, No abnormal gait, No abnormal hearing, No abnormal movements, No abnormal speech, No behavioral changes, No burning sensations, No confusion, No convulsions, No disequilibrium, No dizziness, No localized weakness, No frequent falls, No headache(s), No lack of coordination, No loss of vision, No memory loss, No numbness, No other visual disturbances, No radicular pain, No restless legs, No sensory deficit, No syncope, No tingling, No tremor(s), No weakness and No other Exam Const General: cooperative, comfortable and no acute distress HENMT Head: normal to inspection Eyes General: appearance normal, both eyes and all related structures Neck Neck: normal visual inspection Neck mass: No Resp Effort & Inspection: normal respiratory effort Auscultation: clear to auscultation bilaterally Cardio Rate: regular rate Rhythm: regular rhythm GI Inspection: normal to inspection Palpation: soft Auscultation: normal bowel sounds Skin General: no rashes or lesions noted Other: Bilateral hands- no further open wounds. Minimal amount of swelling noted however much improved from last visit. Neuro General: no focal motor deficits and CN's II-XI intact bilaterally Extrem General: normal to inspection Psych Appearance: grossly normal Affect: normal affect COVID (Procedure Consent) Procedure Criteria Procedure Criteria: Yes Elective The surgeon/proceduralist and patient have discussed in detail the risk of exposure to and/or potential harm posed by the COVID-19 virus with having a surgery/procedure at this time versus the risk of delaying the surgery/procedure. It is not possible to know either the risk of delaying the surgery or procedure or chance of getting an infection with perfect accuracy, but a joint decision was made between the patient and the surgeon/proceduralist to proceed at this time with the scheduled surgery/procedure as indicated on the consent form. Assessment and Plan Assessment and Plan (1) Stage 5 chronic kidney disease: Status: Chronic Plan - Suad ROSARIO PAHarikaC: Dr. Wyatt will plan to perform a transposition of right forearm cephalic vein to radial artery AV fistula creation. Procedure details, risks and benefits have been explained and reviewed. Patient and his have had the opportunity to ask and have questions answered. Patient verbally understands and agrees with the plan. Patient to hold his fish oil and aspirin for 7 days. Hold Plavix for 2 days prior to the procedure. I have re-examined the patient. There are no clinical changes since date of exam. Fran Wyatt M.D., F.A.C.S.
--- NOTE | 2021-06-15 10:20 | EX.PCM.DISCH ---
Discharge Instructions Procedure Fistula Diet Discharge Diet: Renal Diet Activity Discharge Activity: May Not Drive (for 2-3 days or while taking narcotic pain medications.), May Shower and May Take a Tub Bath (in 5 days.) Lifting Restrictions: 5 pounds Keep extremity elevated above heart level: - (Keep arm elevated above the heart level for 3 days.) Dressing / Incision Call your doctor if your incision/area has: Continuous Slow Oozing, Sudden Increased Bleeding (apply pressure and call your doctor.), Increased Pain/ Swelling, Increased Redness and Foul Smelling Discharge Call your doctor if you observe: Fever of 101 or Higher Suture Line Care: Avoid Pulling/Pushing and Avoid Pinching/Bending Cleanse incision/area with: Keep Dressing Clean & Dry Additional Dressing/Incision Instructions:: Elevate your right arm for comfort. You may remove the elastic bandage in 2 days. Leave the Steri-Strips in place for 1 additional week. You may exercise the right hand with a stress ball. Tylenol or acetaminophen would be the safest pain medication for you. Follow Up Care Please Follow Up With: Fran Wyatt MD When: Call [phone] to make an appointment for suture removal and follow up in 1 week. Test Results: Test results from this visit will be discussed in further detail at your follow-up appointment, if applicable. Discharge Plan Admission Primary Reason for Your Visit: Arteriovenous hemodialysis fistula creation Attending Provider: Fran Wyatt Primary Care Provider: Santosh Tavarez Discharge Orders/Prescriptions Prescriptions: New hydrocodone-acetaminophen 5-325 mg Tablet 1 - 2 tab PO Q4H PRN PRN (Reason: Pain Score 1-10/10) 2 Days Qty: 5 RF: 0 Continued omega-3 fatty acids [Fish Oil Concentrate] 1,000 mg capsule 2,000 mg PO BID RF: 0 furosemide 40 mg tablet 40 mg PO BID RF: 0 rosuvastatin 20 mg tablet 10 mg PO QHS RF: 0 vitamin B complex Tablet 1 tab PO DAILY RF: 0 metoprolol succinate 100 mg tablet extended release 24 hr 100 mg PO LUNCH RF: 0 ondansetron HCl [Zofran] 4 mg tablet 8 mg PO DAILY PRN (Reason: Nausea) RF: 0 prochlorperazine maleate 10 mg tablet 10 mg PO Q8H PRN (Reason: Nausea) RF: 0 losartan 100 mg tablet 100 mg PO DINNER RF: 0 clopidogrel 75 MG tablet 75 mg PO DAILY RF: 0 aspirin 81 MG tablet,chewable 81 mg PO DAILY@0800 RF: 0 glimepiride 1 mg tablet 2 mg PO DAILY RF: 0 calcium acetate(phosphat bind) 667 mg capsule 667 mg PO TID PRN (Reason: phosphorus rafael) RF: 0 amlodipine 5 mg Tablet 5 mg PO DAILY RF: 0 glimepiride 1 mg Tablet 1 mg PO QHS RF: 0 senna 8.6 mg Capsule 8.6 mg PO QHS RF: 0 pantoprazole 20 mg tablet,delayed release (DR/EC) 20 mg PO DAILY RF: 0 cholecalciferol (vitamin D3) 1,000 unit tablet 1,000 unit PO DAILY RF: 0 Referrals / Follow Up: Santosh Tavarez DO [Primary Care Provider] - Disposition Disposition (needs filled in before D/C Order can be placed): Home, Self Care
[2021-06-15] MEDS: Cefazolin 2 GM in 0.9% Normal Saline 100 ML IV (10:59)
[2021-06-15] MEDS: Lidocaine 1% (30 ml sdv) 30 ML Vial (13:00)
[2021-06-15] MEDS: Bupivacaine Mpf 0.5% 30 ML VIAL (13:00)
[2021-06-15] MEDS: Heparin Injection (Vial) 5,000 UNIT/ML VIAL 5000 UNIT (13:00)
--- NOTE | 2021-06-15 13:43 | OP.PCM_ITS ---
Problems Associated Problem List Diagnoses (1) Stage 5 chronic kidney disease: Report of Operation Date of Procedure: 06/15/21 Pre-Operative Diagnosis: Failed left upper extremity dialysis fistula Post-Operative Diagnosis: Same Surgery/Procedure Performed:: Transposition right forearm cephalic vein to radial artery arteriovenous hemodialysis fistula creation Description of Surgical Findings:: Timeout informed consent was obtained. 70-year-old gentleman was taken to the operating placed on the table underwent monitored anesthesia care. 1% lidocaine mixed 50-50 with 0.5% Marcaine was used as a local anesthetic. A total 41 cc was used. Ultrasound was used to map the course of the right forearm cephalic vein local was instilled a longitudinal incision was created sharp and blunt dissection was used to completely dissect the cephalic vein free. Hemoclips were used and 4-0 Vicryl ligatures to secure side branches. The vein was then ligated distally with a Hemoclip it was irrigated with couple repair sutures of 7-0 Prolene were placed there appeared to be good. Medial to the incision then local was instilled in a straight tunneler 6 mm tunnel was placed. The vein had been ink marked was placed through the tunnel. The patient received 9000 units of heparin. Peripheral vascular clamps were placed on the radial artery 11 blade was used to make an arteriotomy which was extended with Fenton scissors. The vein was spatulated end-to-side anastomosis created with a running 7-0 Prolene. Clamps were released. However it then became apparent that there was a full twist in the vein there was no flow the anastomosis was disconnected. The vein was removed from the tunnel it was straightened irrigated reconfirmed replaced through the tunnel and a repeat anastomosis performed with running 7-0 Prolene. This time there was excellent flow through the newly created fistula and this was confirmed with Doppler. The hand was inspected it was felt to be viable there w as pink coloration and just slightly diminished capillary refill. The patient had received an additional 1000 units of heparin during the recreation.. At the completion of the procedure he received 30 mg of protamine as reversal agent. Subcutaneous tissues were approximated with interrupted 3-0 Vicryl sutures. The skin edges were approximated running subicular 4-0 Monocryl. Steri-Strips Telfa soft roll Alvin wrap applied. Sponge and instrument and needle counts were reported to the surgeon to be correct. Specimens none. Drains none. Blood loss 200 cc. The patient was taken to the recovery area in satisfactory addition without apparent complication. Fran Wyatt M.D., F.A.C.S. Surgeon: Fran Wyatt Type of Anesthesia: MAC Anesthesiologist: Reyes Salazar
== END 2021-06-15 16:06 | disposition home or self-care (01) ==
LOC: SDC 08:45 → AC 08:45
PROVIDERS: PCP Family Medicine; Referring Provider Surgery; Visit Provider Surgery
PROC: (CPT 36820; principal; 2021-06-15 10:45)
DX: Z49.01 Encounter for fitting and adjustment of extracorporeal dialysis catheter (principal); N18.5 Chronic kidney disease, stage 5; I25.10 Atherosclerotic heart disease of native coronary artery without angina pectoris; E78.2 Mixed hyperlipidemia; I12.0 Hypertensive chronic kidney disease with stage 5 chronic kidney disease or end stage renal disease; E11.22 Type 2 diabetes mellitus with diabetic chronic kidney disease; C34.91 Malignant neoplasm of unspecified part of right bronchus or lung; T82.838D Hemorrhage due to vascular prosthetic devices, implants and grafts, subsequent encounter; Y82.8 Other medical devices associated with adverse incidents; Z79.899 Other long term (current) drug therapy; Z79.02 Long term (current) use of antithrombotics/antiplatelets; Z79.82 Long term (current) use of aspirin; Z79.84 Long term (current) use of oral hypoglycemic drugs; Z87.891 Personal history of nicotine dependence; Z86.718 Personal history of other venous thrombosis and embolism
CPT/HCPCS: 01844; 36820; 36415; 80048; 82962; 85027; 93005; J7030; J7120; A4216

== ENCOUNTER 2022-02-08 08:41 | Day surgery (SDC) | payer MEDICARE, SELFPAY ==
[2022-01-30 14:20] LABS: Hematocrit 36.3 % (40-54); Mean Corp Hgb Conc 33.1 g/dL (32-36); Mean Corpuscular Hgb 31.3 pg (27.0-32.0); Mean Corpuscular Volume 94.5 fL (80-94); Mean Platelet Vol. 9.5 fl (6.2-12.0); POSITIVE COUNT YES; POSITIVE MORPHOLOGY YES; Platelet Count 78 K/mm3 (150-450); RBC Distribution Width CV 14.5 % (11.6-14.6); Red Blood Count 3.84 M/mm3 (4.6-6.2); White Blood Count 10.4 K/mm3 (4.4-11.0)
[2022-01-30 14:30] LABS: Differential Indicated MANUAL DIFF
[2022-01-30 14:43] LABS: Basophil 2 % (0-1); Lymphocyte 33 % (19-41); Metamyelocyte 1 % (0-1); Monocyte 1 % (0-10); Neutrophil-Segmented 63 % (47-70); Platelet Estimate MOD DEC (ADEQ); Red Cell Morphology NORM C+C NORMAL (NORM C&C); Total Cells Counted 100 (MANUAL DIFF)
[2022-01-30 14:44] LABS: Absolute Neutrophil Count 6.5 X10^3/uL (2.0-7.7)
[2022-01-30 14:51] LABS: Anion Gap 9 (5-15); BUN 83 mg/dL (7-18); BUN/Creat Ratio 10.7 RATIO (10-20); Calcium,Total 9.7 mg/dL (8.5-10.1); Chloride 99 mmol/L (98-107); Creatinine, Serum 7.73 mg/dL (0.70-1.30); EST Glomerular Filtration Rate 7 mL/min (>60); Est Glom Filt Rate - Afr Amer 9 mL/min (>60); Glucose 119 mg/dL (74-106); Potassium 5.8 mmol/L (3.5-5.1); Sodium Level 137 mmol/L (136-145)
[2022-01-31 10:56] LABS: Pathologist Review Reviewed
[2022-02-07 08:15] VITALS: BMI 32.0
--- NOTE | 2022-02-08 09:56 | HP.PCM_ITS ---
History and Physical Date of Admission: 02/08/22 Visit Reasons:?FISTULAGRAM Chief Complaint: check fistula Threshing Department Supervisor Required: No Is patient in pain?: No Allergies Sulfa (Sulfonamide Antibiotics) Allergy (Severe, Verified 01/30/22 12:53) Rashlisinopril Allergy (Verified 01/30/22 12:53) Otherclonidine Adverse Reaction (Severe, Verified 01/30/22 12:53) sedation Medications aspirin 81 mg chewable tablet 81 mg PO DAILY@0800 heart 07/06/16 [History Confirmed 01/30/22] clopidogrel 75 mg tablet 75 mg PO DAILY blood thinner 07/06/16 [History Confirmed 01/30/22] cholecalciferol (vitamin D3) 25 mcg (1,000 unit) tablet 1,000 unit PO DAILY supplement 02/06/19 [History Confirmed 01/30/22] pantoprazole 20 mg tablet,delayed release 20 mg PO DAILY reflux 02/06/19 [History Confirmed 01/30/22] furosemide 40 mg tablet 40 mg PO BID 06/13/20 [History Confirmed 01/30/22] rosuvastatin 20 mg tablet 10 mg PO QHS 06/13/20 [History Confirmed 01/30/22] calcium acetate(phosphat bind) 667 mg capsule 667 mg PO TID PRN phosphorus rafael 01/30/21 [History Confirmed 01/30/22] losartan 100 mg tablet 100 mg PO DINNER 01/30/21 [History Confirmed 01/30/22] prochlorperazine maleate 10 mg tablet 10 mg PO Q8H PRN Nausea 01/30/21 [History Confirmed 01/30/22] amlodipine 5 mg tablet 5 mg PO DAILY 06/08/21 [History Confirmed 01/30/22] multivitamin (Daily Multi-Vitamin tablet) 1 tab PO DAILY 07/27/21 [History Confirmed 01/30/22] metoprolol succinate 50 mg tablet,extended release 24 hr 50 mg PO DAILY 01/23/22 [History Confirmed 01/30/22] omega-3 fatty acids 1,000 mg capsule (Fish Oil Concentrate) 1,000 mg PO TID supplement 01/23/22 [History Confirmed 01/30/22] sennosides 8.6 mg tablet (Senokot) 8.6 mg PO QHS 01/23/22 [History Confirmed 01/30/22] vitamin B complex and vitamin C no.20-folic acid 1 mg capsule (Renal Caps) 1 cap PO DAILY 01/23/22 [History Confirmed 01/30/22] glimepiride 2 mg tablet 1 mg PO .qod 01/30/22 [History Confirmed 01/30/22] PFSH Medical History? Anemia Arthritis Atherosclerotic heart disease of [place] coronary artery without angina pectoris Cardiology follow-up encounter CKD (chronic kidney disease) stage 4, GFR 15-29 ml/min Diverticulosis DVT (deep venous thrombosis) Essential hypertension Former smoker Gastric reflux History of gastric ulcer History of left heart catheterization (LHC) (~2000) Lung cancer Lung nodule Mixed hyperlipidemia Myocardial infarct Need for intravenous access Problem with dialysis access Renal failure (ARF), acute on chronic Scrotal edema Stage 5 chronic kidney disease TIA (transient ischemic attack) Type 2 diabetes mellitus Wears glasses Surgical History? history AV fistula left arm (~04/27/20) history insertion tunneled dialysis catheter (~05/11/20) History of coronary artery bypass surgery (~08/08/18) History of toe surgery History of tonsillectomy history removal peritoneal dialysis catheter (~05/11/20) S/P dialysis catheter insertion Family History? Mother HypertensionFather?? Congestive heart failure Social History? Smoking Status:? Former smoker alcohol intake:? never substance use type:? does not use caffeine:? Yes Type: coffee Number of servings: 3 HPI HPI Surgical H&P: Yes HPI: ELISSA POWER, is a 71 M who presents to the office today for decreased flows. Patient has a right forearm radial cephalic arteriovenous fistula created on 06/15/21. Patient has not had a fistulogram on this present fistula. He denies prolonged post-treatment bleeding. He is able to fully complete his treatments. He is maintained on Plavix, ASA and fish oil. Patient dialyzes on M, W, and F at [facility]. Patient recently started chemotherapy again for lung cancer. ? ? ROS General General: Yes fatigue; No weight change, appetite, colon cancer, breast cancer or weakness HEENT HEENT: No difficulty swallowing, eye injury, eye surgery, swollen glands or hoarseness Endo Endocrine: Yes diabetes mellitus; No thyroid disease, thyroid cancer, Hair loss, heat intolerance or cold intolerance Skin Skin: No rash or changing moles Breast Breast: No left breast lump, right breast lump, nipple discharge, breast pain, abnormal mammogram, abnormal US or breast enlargement Musc Musculoskeletal: Yes arthritis; No back problems, rheumatoid arthritis, gout or joint pain Cardio Cardiovascular: Yes heart disease, high blood pressure and heart stent; No murmur, pacemaker, atrial fibrillation, heart attack, palpitations, shortness of breat with exertion or chest pain Psych Psychiatric: No depression, anxiety or hearing voices Resp Respiratory: Yes shortness of breath, Yes sleep apnea, Yes cough, No COPD, No asthma, No emphysema and No wheezing Gastro Gastrointestinal: No abdominal pain, No nausea or vomiting, No diarrhea, No constipation, No blood in stool, No acid reflux, Yes hemorrhoids, Yes ulcers, No gallbladder problem and No black,tarry stools Jesus Hematologic: Yes blood thinners, No blood disorders, Yes bleeding, Yes anemia and No blood clots Neuro Neurologic: No system reviewed and no additional complaints, except as documented, No as per HPI, No abnormal gait, No abnormal hearing, No abnormal movements, No abnormal speech, No behavioral changes, No burning sensations, No confusion, No convulsions, No disequilibrium, No dizziness, No localized weakness, No frequent falls, No headache(s), No lack of coordination, No loss of vision, No memory loss, No numbness, No other visual disturbances, No radicular pain, No restless legs, No sensory deficit, No syncope, No tingling, No tremor(s), No weakness and No other Exam Const General: cooperative, healthy appearing, comfortable and no acute distress [facility] Head: normal to inspection Eyes General: appearance normal, both eyes and all related structures Neck Neck: normal visual inspection Neck mass: No Resp Effort & Inspection: normal respiratory effort Auscultation: clear to auscultation bilaterally Cardio Rate: regular rate Rhythm: regular rhythm GI Inspection: normal to inspection Skin General: no rashes or lesions noted Neuro General: no focal motor deficits and CN's II-XI intact bilaterally Extrem Other: right forearm AV fistula- good pulse, diminished bruit and thrill. Appears to be a button hole technique for access point. Psych Appearance: grossly normal Affect: normal affect Assessment and Plan Assessment and Plan (1) Problem with dialysis access: ?Status:?Acute ?Qualifiers: ?Encounter type:?initial encounter? Qualified Code(s):?T82.898A - Other specified complication of vascular prosthetic devices, implants and grafts, initial encounter ?Plan: Dr. Wyatt will plan to perform an elective right forearm fistulogram. Procedure details, risks and benefits have been reviewed. Patient has had the opportunity to ask and have questions answered. Patient verbally understands agrees with the plan. Obtain CBC and BMP today. Stop fish oil today. Hold Plavix 3 days prior to the procedure. I have re-examined the patient. There are no clinical changes since date of exam. Fran Wyatt M.D., F.A.C.S.
--- NOTE | 2022-02-08 11:37 | OP.PCM_ITS ---
Report of Operation Date of Procedure: 02/08/22 Pre-Operative Diagnosis: Problem with dialysis access with diminished flow Post-Operative Diagnosis: Multiple areas of diffuse and high-grade venous stenosis transposed right forearm cephalic vein to radial artery arteriovenous hemodialysis fistula Surgery/Procedure Performed:: Right upper extremity fistulogram with 6 x 8 EverCross angioplasty and 5 x 2 cutting balloon angioplasty Description of Surgical Findings:: Timeout informed consent was obtained. 71-year-old gentleman was taken to the special procedures lab. Although provided instructions and being aware of the instructions he did eat prior to coming in. He states that he was fearful of his glucose level at 91. No IV sedative therefore given. The right upper extremity was sterilely prepped and draped. Under ultrasound guidance 2% lidocaine was instilled as a local anesthetic closer to the antecubital space retrograde with flow. Then under ultrasound guidance micropuncture needle was inserted retrograde micropuncture wire 6 [place] short sheath dilator. Using an 035 angled Glidewire 4 [place] glide cath was again placed into the radial artery proximal to the anastomosis. Isovue contrast was used with hand-injection. Total 15 cc used throughout the procedure. Fistulogram was obtained demonstrating diffuse narrowing throughout the forearm transposed cephalic vein. The patient received 5000 units of heparin intravenously. A 6 x 8 EverCross balloon was inserted and balloon angioplasty was performed of the entire length of the transposed vein starting at the surgical anastomosis to the radial artery and extending back to the sheath. There were 2 areas of high-grade stenosis that failed to respond. One was within a centimeter of the arterial anastomosis and the other was closer to the antecubital space. I subsequently placed a SV 5 wire and placed a 5 x 2 cutting balloon and treated the stenotic area within a centimeter of the radial artery and the secondary lesion in the very proximal forearm. Both lesions responded rapidly with a single insufflation. [place] cath was reinserted and final views now demonstrated dramatically improved flow throughout the forearm cephalic vein. Fistulogram was completed demonstrating good flow in the upper arm cephalic and basilic veins with good central venous outflow. She tolerated procedure well sheath was removed U suture 4-0 nylon was placed for hemostasis. There was a pulse and palpable thrill at the completion. Blood loss minimal. Images demonstrate a transposed right forearm cephalic vein to radial artery arteriovenous hemodialysis fistula. Diffuse areas of severe venous stenosis throughout the entire course of the transposed cephalic vein. 2 areas of high- grade 90% stenosis or greater. Subsequent to the angioplasty all areas of crit ical stenosis appear to be resolved. There is adequate upper arm cephalic and basilic outflow and good central venous outflow. There is evidence of a port with central line within the right internal jugular ending up in the right superior vena cava. Fran Wyatt M.D., F.A.C.S. Surgeon: Fran Wyatt Type of Anesthesia: Local
== END 2022-02-08 12:20 | disposition home or self-care (01) ==
LOC: CLSP 08:42
PROVIDERS: Physician Assistant; PCP Family Medicine; Referring Provider Surgery; Visit Provider Surgery
DX: T82.898A Other specified complication of vascular prosthetic devices, implants and grafts, initial encounter (principal); N18.5 Chronic kidney disease, stage 5; I12.9 Hypertensive chronic kidney disease with stage 1 through stage 4 chronic kidney disease, or unspecified chronic kidney disease; I25.10 Atherosclerotic heart disease of native coronary artery without angina pectoris; I25.2 Old myocardial infarction; E78.2 Mixed hyperlipidemia; K21.9 Gastro-esophageal reflux disease without esophagitis; Z87.891 Personal history of nicotine dependence; Z86.73 Personal history of transient ischemic attack (TIA), and cerebral infarction without residual deficits; Z86.718 Personal history of other venous thrombosis and embolism; Z95.5 Presence of coronary angioplasty implant and graft; Z79.82 Long term (current) use of aspirin; Z79.899 Other long term (current) drug therapy; X58.XXXA Exposure to other specified factors, initial encounter
CPT/HCPCS: 36415; 36902; 76937; 80048; 85025; C1725; Q9967; A4216; C1769

== ENCOUNTER 2022-05-23 06:01 | Emergency (ER) | payer MEDICARE, SELFPAY ==
[2022-05-23 06:01] VITALS: BP 185/96; PULSE 112; RESP 30; TEMP 36.8; O2SAT 94; BMI 30.9
--- NOTE | 2022-05-23 06:12 | CT_ITS ---
We are attempting to reach an attending provider to discuss findings. An addendum with communication details will be sent when the communication is complete. STUDY: CT HEAD W/O CONTRAST INJECTION REASON FOR EXAM: Male, 71 years old. Seizure RADIATION DOSAGE (If Supplied By Facility): CTDIvol = ( 44.99 ) mGy, DLP = ( 846.73 ) mGycm TECHNIQUE: Transaxial CT imaging of the brain was performed without administration of intravenous contrast material. Individualized dose optimization techniques were used for this CT. COMPARISON: No relevant priors. FINDINGS: BRAIN: There is a 1.3 x 1.1 x 1.2 cm mass with central low attenuation and peripheral rim of relatively increased attenuation in the right basal ganglia. Hyperdense rim may be due to tumor or hemorrhage. Marked surrounding edema in the basal ganglia/thalamus extension to the right side of the midbrain, with mass effect on the right lateral ventricle and third ventricle and shift of midline structures to the left 4 mm. Focal area of decreased attenuation in the left frontoparietal region. VENTRICLES AND SULCI: The ventricles are prominent. Sulci are partially effaced on the right. EXTRA-AXIAL: No hemorrhage, fluid collection, or mass. CALVARIUM / SKULL BASE: Unremarkable. FACE/SINUSES: Mucosal thickening in the right maxillary sinus. SOFT TISSUES: Unremarkable. CT/Brain/Head without Contrast IMPRESSION: 1.3 cm mass in the right basal ganglia with possible hemorrhage with significant surrounding edema and midline shift to the left. Cannot exclude second lesion in the left frontoparietal region. Differential includes hemorrhagic mass malignancy/metastatic disease, abscess less likely. MRI recommended for further evaluation. Electronically Signed: Jamee Reich MD at 7:21 EST ,
--- NOTE | 2022-05-23 06:12 | RAD_ITS ---
STUDY: X-RAY CHEST REASON FOR EXAM: Male, 71 years old. seizure TECHNIQUE: AP portable. 7:15 AM COMPARISON: 08/18/2020. FINDINGS: LINES/DEVICES: Indwelling central venous catheter unchanged tip in the region of the right atrium. LUNGS: Low lung volumes. Alveolar infiltrates bilaterally greater on the right. More rounded opacity in the right upper lobe. Mass not excluded. Small right pleural effusion. No pneumothorax. MEDIASTINUM: Unremarkable. CARDIAC SILHOUETTE: Appears enlarged. Sternal wires. BONES AND SOFT TISSUES: No acute abnormalities. RAD/Chest 1 View (Portable) IMPRESSION: Bilateral airspace disease and small right pleural effusion. Possible pneumonia. More rounded opacity in the right upper lobe may be related to airspace disease mass not excluded. Electronically Signed: Jamee Reich MD at 7:24 EST ,
[2022-05-23] MEDS: LORazepam 2 MG/ML Syringe IV (06:21)
[2022-05-23 06:54] LABS: Absolute Lymphocyte Count 5.83 X10^3/uL (0.83-4.51); Absolute Neutrophil Count 6.9 X10^3/uL (2.0-7.7); Basophil# 0.09 X10^3/uL; Basophil% 0.6 % (0-1); Eosinophil# 0.33 X10^3/uL; Eosinophils% 2.4 % (0-5); Hematocrit 39.4 % (40-54); Hemoglobin 12.2 g/dL (13.0-16.5); Lymphocyte # 5.83 X10^3/ul (0.83-4.51); Lymphocyte % 41.9 % (19-41); Mean Corpuscular Hgb 28.8 pg (27.0-32.0); Mean Corpuscular Volume 93.1 fL (80-94); Mean Platelet Vol. 9.1 fl (6.2-12.0); Monocyte# 0.79 X10^3/uL; Monocyte% 5.7 % (0-10); NRBC Flagged by Analyzer 0 % (0-5); Neutrophil # 6.85 X10^3/uL (2.7-7.7); Neutrophil % 49.2 % (47-70); POSITIVE DIFFERENTIAL YES; POSITIVE MORPHOLOGY YES; Platelet Count 144 K/mm3 (150-450); RBC Distribution Width CV 16.3 % (11.6-14.6); RBC Distribution Width SD 55.1 fl (35.1-43.9); Red Blood Count 4.23 M/mm3 (4.6-6.2); White Blood Count 13.9 K/mm3 (4.4-11.0)
[2022-05-23 06:55] LABS: Differential Indicated SCAN CRITERIA MET
[2022-05-23 07:10] LABS: Anion Gap 12 (5-15); BUN 59 mg/dL (7-18); BUN/Creat Ratio 8.1 RATIO (10-20); Calcium,Total 10.3 mg/dL (8.5-10.1); Chloride 97 mmol/L (98-107); Creatinine, Serum 7.24 mg/dL (0.70-1.30); EST Glomerular Filtration Rate 8 mL/min (>60); Est Glom Filt Rate - Afr Amer 10 mL/min (>60); Estimated Creatinine Clearance 9.66 ml/min; Glucose 141 mg/dL (74-106); Magnesium 2.6 mg/dL (1.6-2.6); Phosphorus 3.4 mg/dL (2.5-4.9); Potassium 5.4 mmol/L (3.5-5.1); Sodium Level 135 mmol/L (136-145)
[2022-05-23 07:16] LABS: AST(SGOT) 41 U/L (15-37); Alanine Aminotransfer ALT/SGPT 26 U/L (16-61); Albumin, Serum 3.3 g/dL (3.2-5.0); Alkaline Phosphatase 103 U/L (45-117); Bilirubin, Direct 0.12 mg/dL (0.00-0.30); Globulin 5.3 g/dL (2.2-4.2); Protein, Total 8.6 g/dL (6.4-8.2)
[2022-05-23 07:23] LABS: Anisocytosis 1+; Platelet Estimate SLT DEC (ADEQ)
--- NOTE | 2022-05-23 07:34 | ED.RN ---
PT REMOVED FROM MONITOR, HOSPICE BEING CALLED. PT REMAINS ON OXYGEN FOR COMFORT CARE
--- NOTE | 2022-05-23 07:51 | NURSING ---
FAXED CHART TO [facility] [phone]
[2022-05-23] MEDS: dexAMETHasone 20 MG/5 ML Vial IV (08:15)
[2022-05-23] MEDS: LORazepam 2 MG/ML Syringe 1 MG IV ×2 (08:16→10:28)
[2022-05-23] MEDS: Morphine 2 MG/ML Syringe IV (08:16)
[2022-05-23] MEDS: Ondansetron 4 MG/2 ML Vial IV (08:16)
--- NOTE | 2022-05-23 08:51 | EX.ED.DYSGE1 ---
HPI History of Present Illness Chief Complaint: Seizure Narrative Narrative: Patient is a 71-year-old male with history of chronic renal failure on dialysis as well as a history of of liver cancer and lung cancer. Reportedly a few days ago he had a seizure which was new for him and they felt it was related to possible Ritalin withdrawal. Reportedly he returned to his baseline and was doing well. This morning he got up for dialysis and then had seizure activity. Secondary to this EMS was called. EMS states when they arrived patient was no longer seizing but he was not talking. He was loaded onto the cot his sugar value was normal and he had stable vitals other than hypertension. However upon arrival to the ER he began seizing once again. Patient cannot offer further history based on his mental status [facility] Medical History Anemia Arthritis Atherosclerotic heart disease of [place] coronary artery without angina pectoris Cardiology follow-up encounter CKD (chronic kidney disease) stage 4, GFR 15-29 ml/min Diverticulosis DVT (deep venous thrombosis) Essential hypertension Former smoker Gastric reflux History of gastric ulcer History of left heart catheterization (LHC) (~2000) Lung cancer Lung nodule Mixed hyperlipidemia Myocardial infarct Need for intravenous access Problem with dialysis access Renal failure (ARF), acute on chronic Scrotal edema Stage 5 chronic kidney disease TIA (transient ischemic attack) Type 2 diabetes mellitus Wears glasses Home Medications aspirin 81 mg chewable tablet 81 mg PO DAILY@0800 heart 07/06/16 [History Last Taken 02/08/22] clopidogrel 75 mg tablet 75 mg PO DAILY blood thinner 07/06/16 [History Last Taken 02/08/22] cholecalciferol (vitamin D3) 25 mcg (1,000 unit) tablet 1,000 unit PO DAILY supplement 02/06/19 [History Last Taken 02/08/22] pantoprazole 20 mg tablet,delayed release 20 mg PO DAILY reflux 02/06/19 [History Last Taken 02/08/22] furosemide 40 mg tablet 40 mg PO BID 06/13/20 [History Last Taken 02/08/22] rosuvastatin 20 mg tablet 10 mg PO QHS 06/13/20 [History Last Taken Unknown] calcium acetate(phosphat bind) 667 mg capsule 667 mg PO TID PRN phosphorus rafael 01/30/21 [History Last Taken 02/08/22] losartan 100 mg tablet 100 mg PO DINNER 01/30/21 [History Last Taken Unknown] prochlorperazine maleate 10 mg tablet 10 mg PO Q8H PRN Nausea 01/30/21 [History Last Taken 02/08/22] amlodipine 5 mg tablet 5 mg PO DAILY 06/08/21 [History Last Taken 02/08/22] multivitamin (Daily Multi-Vitamin tablet) 1 tab PO DAILY 07/27/21 [History Last Taken 02/08/22] metoprolol succinate 50 mg tablet,extended release 24 hr 50 mg PO DAILY 01/23/22 [History Last Taken Unknown] omega-3 fatty acids 1,000 mg capsule (Fish Oil Concentrate) 1,000 mg PO TID supplement 01/23/22 [History Last Taken 02/08/22] sennosides 8.6 mg tablet (Senokot) 8.6 mg PO QHS 01/23/22 [History Last Taken Unknown] vitamin B complex and vitamin C no.20-folic acid 1 mg capsule (Renal Caps) 1 cap PO DAILY 01/23/22 [History Last Taken Unknown] glimepiride 2 mg tablet 1 mg PO .qod 01/30/22 [History Last Taken 02/08/22] Allergy/AdvReac Type Severity Reaction Status Date / Time Sulfa (Sulfonamide Allergy Severe Rash Verified 01/30/22 12:53 Antibiotics) lisinopril Allergy Other Verified 01/30/22 12:53 clonidine AdvReac Severe sedation Verified 01/30/22 12:53 Family History Mother Hypertension Father Congestive heart failure Surgical History history AV fistula left arm (~04/27/20) history insertion tunneled dialysis catheter (~05/11/20) History of coronary artery bypass surgery (~08/08/18) History of toe surgery History of tonsillectomy history removal peritoneal dialysis catheter (~05/11/20) S/P dialysis catheter insertion Social History Smoking Status: Former smoker alcohol intake: never substance use type: does not use caffeine: Yes Type: coffee Number of servings: 3 ROS ROS ED Review of Systems ROS Unobtainable: due to mental condition EXAM Physical Exam Const Vital Signs: 05/23/22 06:01 Temperature 98.2 F Temperature Source Temporal Pulse Rate 112 H Respiratory Rate 30 H Blood Pressure 185/96 H Blood Pressure Mean 125 Pulse Ox 94 Oxygen Delivery Method Nasal Cannula Oxygen Flow Rate (L/min) 2 Positive well nourished, well developed and obese General Appearance ED: well developed Nutritional Appearance: obese HEENT Reports dry mucous membranes HEENT Narrative: Slight cheek biting noted consistent with seizure activity Mouth ED: Yes dry mucous membranes Mouth: dry mucous membranes Eyes EOMs intact bilaterally Eyes Narrative: Pupils are dilated and slightly sluggish to respond Neck Neck Narrative: No bony deformity or step-off of the cervical spine Chest Wall palpation of chest normal Resp normal respiratory effort Resp Narrative: Breath sounds are diminished throughout with rhonchi noted in the bilateral bases Cardio regular rhythm Rate: tachycardic GI non-distended GI Narrative: Soft nontender nondistended with normoactive bowel sounds. No pulsatile mass Auscultation: normoactive bowel sounds Palpation: soft Extremity normal to inspection Neuro Neuro Narrative: Patient is obtunded with a GCS of 10. He had a witnessed tonic-clonic seizure activity and afterwards was postictal with no obvious focal neurologic deficit. He is localizing pain and moves all extremities. Skin no rashes or lesions noted MDM MDM MDM Narrative Medical decision making narrative: Patient presented to the ER with overall stable vitals other than mild hypertension. He had a witnessed tonic-clonic seizure activity that lasted for a few minutes and then resolved into a postictal phase. With his history of lung and liver cancer there was concern for metastasis to the brain as a cause of his new seizure activity. A head CT was obtained which did confirm a brain mass with midline shift and possible bleed. Family was notified of these results and they feel that with his chronic conditions of diabetes and renal failure on dialysis that he would not be a good candidate for any type of further intervention and wished to make him hospice. The patient had a DNR comfort care only form signed by the patient's . At this time only care that we have provided is symptomatic such as nasal cannula oxygen as well as morphine and Ativan. asked for [facility] [place] to be contacted for possible placement in their facility. They were notified and state they will review the patient's case and then inform us if they can take him at this time. Until then patient will be watched in the ER and given medication as needed Lab Data Attestation: I reviewed the patient's lab results. Labs: Laboratory Results - last 24 hr 05/23/22 05/23/22 05/23/22 06:14 06:14 06:14 WBC 13.9 H RBC 4.23 L Hgb 12.2 L Hct 39.4 L MCV 93.1 MCH 28.8 MCHC 31.0 L RDW Std Deviation 55.1 H RDW Coeff of Nikki 16.3 H Plt Count 144 L MPV 9.1 Immature Gran % (Auto) 0.200 Neut % (Auto) 49.2 Lymph % (Auto) 41.9 H [place] % (Auto) 5.7 Eos % (Auto) 2.4 Baso % (Auto) 0.6 Absolute Neuts (auto) 6.9 Absolute Lymphs (auto) 5.83 H Nucleated RBC % 0 Platelet Estimate SLT DEC Anisocytosis 1+ PT INR APTT Sodium 135 L Potassium 5.4 H Chloride 97 L Carbon Dioxide 26.0 Anion Gap 12 BUN 59 H Creatinine 7.24 H Estim Creat Clear Calc 9.66 Est GFR (MDRD) Af Amer 10 L Est GFR (MDRD) Non-Af 8 L BUN/Creatinine Ratio 8.1 L Glucose 141 H Calcium 10.3 H Phosphorus 3.4 Magnesium 2.6 Total Bilirubin 0.40 Direct Bilirubin 0.12 AST 41 H ALT 26 Alkaline Phosphatase 103 Total Protein 8.6 H Albumin 3.3 Globulin 5.3 H 05/23/22 06:14 WBC RBC Hgb Hct MCV MCH MCHC RDW Std Deviation RDW Coeff of Nikki Plt Count MPV Immature Gran % (Auto) Neut % (Auto) Lymph % (Auto) [place] % (Auto) Eos % (Auto) Baso % (Auto) Absolute Neuts (auto) Absolute Lymphs (auto) Nucleated RBC % Platelet Estimate Anisocytosis PT Cancelled INR Cancelled APTT Cancelled Sodium Potassium Chloride Carbon Dioxide Anion Gap BUN Creatinine Estim Creat Clear Calc Est GFR (MDRD) Af Amer Est GFR (MDRD) Non-Af BUN/Creatinine Ratio Glucose Calcium Phosphorus Magnesium Total Bilirubin Direct Bilirubin AST ALT Alkaline Phosphatase Total Protein Albumin Globulin Radiography Diagnostic Testing: Clinical Impression(s) from Imaging Studies Brain CT 05/23/22 06:12 IMPRESSION: 1.3 cm mass in the right basal ganglia with possible hemorrhage with significant surrounding edema and midline shift to the left. Cannot exclude second lesion in the left frontoparietal region. Differential includes hemorrhagic mass malignancy/metastatic disease, abscess less likely. MRI recommended for further evaluation. Electronically Signed: Jamee Reich MD at 7:21 EST , ADDENDUM: 05/23/22 0748 IMPRESSION: 1.3 cm mass in the right basal ganglia with possible hemorrhage with significant surrounding edema and midline shift to the left. Cannot exclude second lesion in the left frontoparietal region. Differential includes hemorrhagic mass malignancy/metastatic disease, abscess less likely. MRI recommended for further evaluation. N.B. : The above Results were Read Back by Jamee Reich MD to Kavin [id number], and understanding confirmed on 05/23/2022 07:41:17 (ET). Electronically Signed: Jamee Reich MD at 7:21 EST , Chest X-Ray 05/23/22 06:12 IMPRESSION: Bilateral airspace disease and small right pleural effusion. Possible pneumonia. More rounded opacity in the right upper lobe may be related to airspace disease mass not excluded. Electronically Signed: Jamee Reich MD at 7:24 EST , Chest x-ray as interpreted by the emergency medicine physician reveals a small right pleural effusion with bilateral opacities noted Discharge Plan Triage Chief Complaint: Seizure ED Provider: Kavin Patton Dx/Rx/DC Orders Clinical Impression: Metastatic cancer to brain, Type 2 diabetes mellitus, New onset seizure, End stage renal failure on dialysis Prescriptions: No Action furosemide 40 mg tablet 40 mg PO BID rosuvastatin 20 mg tablet 10 mg PO QHS prochlorperazine maleate 10 mg tablet 10 mg PO Q8H PRN (Reason: Nausea) losartan 100 mg tablet 100 mg PO DINNER multivitamin [Daily Multi-Vitamin] Tablet 1 tab PO DAILY clopidogrel 75 MG tablet 75 mg PO DAILY Label Comments: hold 5 days preop aspirin 81 MG tablet,chewable 81 mg PO DAILY@0800 Label Comments: was not told to stop calcium acetate(phosphat bind) 667 mg capsule 667 mg PO TID PRN (Reason: phosphorus rafael) amlodipine 5 mg Tablet 5 mg PO DAILY pantoprazole 20 mg tablet,delayed release (DR/EC) 20 mg PO DAILY cholecalciferol (vitamin D3) 1,000 unit tablet 1,000 unit PO DAILY metoprolol succinate 50 mg tablet extended release 24 hr 50 mg PO DAILY omega-3 fatty acids [Fish Oil Concentrate] 1,000 mg capsule 1,000 mg PO TID sennosides [Senokot] 8.6 mg tablet 8.6 mg PO QHS Renal Caps 1 mg capsule 1 cap PO DAILY glimepiride 2 mg tablet 1 mg PO .qod Primary Care Provider: Santosh Tavarez Referrals: Santosh Tavarez DO [Primary Care Provider] - Disposition Disposition: Hospice in Medical Facility Discharge Location: [facility]
--- NOTE | 2022-05-23 10:09 | NURSING ---
[facility], HOSPICE, CALLED. CLIFFORD COMING BETWEEN 1230 TO 1300
--- NOTE | 2022-05-23 11:37 | CM.ED ---
Social Work [facility] here to meet with patient and patient family. Anticipating Inpatient Hospice Unit. Will continue to follow. Phan COSTELLO, RAOULS
--- NOTE | 2022-05-23 11:40 | CHAPLAIN ---
Type of Pastoral Visit _x__ Initial Visit ___ Follow-up Visit ___ On-call Visit ___ General Patient Visit ___ Spiritual Assessment ___ Family Conference ___ Bereavement ___ Rapid Response ___ Code Blue ___ Other (describe below) Pastoral Care Referral From ___ Patient ___ Family _x__ Nurse ___ Physician ___ Glass Inspector ___ Tours Captain ___ Other (describe below) Sacrament/Intervention ___ Active listening ___ Anointing ___ Mu-Ism ___ Bereavement ___ Communion ___ Yris exploration ___ ___ Life review _x__ Prayer ___ Reconciliation ___ Sacrament of Sick _x__ Supportive presence ___ Wedding ___ Other (describe below) Pastoral Comments during rounds in the ED this taxicab coordinator was notified by SALES OPERATIONS ASSISTANT that patient was being admitted to hospice and that he/family would appreciate the spiritual care and emotional support; patient is sleeping and per family he is now unresponsive with many cancer and complicating health issues; family members are offered support and they welcome presence and prayer; listening and time given until hospice personnel arrived
--- NOTE | 2022-05-23 12:04 | ED.RN ---
called report to Na at hospice [facility]
--- NOTE | 2022-05-23 12:06 | CM.ED ---
Social Work This social work lecturer touching base with family in room. Introduced self and social work lecturer role. Patient family reports to have met with hospice and to have signed paperwork for the inpatient hospice unit. Patient family confirms that all questions have been answered. Patient family decline any needs. Patient resting in bed. Georgina with [facility] confirms that patient is accepted to the inpatient hospice unit. Georgina to coordinate transportation for patient. Georgina spoke with patient nurse to provide report information. PLAN: [facility] inpatient unit. Phan COSTELLO, OSCAR
--- NOTE | 2022-05-23 12:54 | ED.RN ---
support provided to at discharge. pt appears comfortable at dc.
== END 2022-05-23 12:55 | disposition hospice, inpatient (51) ==
PROVIDERS: Emergency Provider Emergency Medicine; PCP Family Medicine; Visit Provider Emergency Medicine
DX: C79.31 Secondary malignant neoplasm of brain (principal); Z99.2 Dependence on renal dialysis; E11.22 Type 2 diabetes mellitus with diabetic chronic kidney disease; N18.6 End stage renal disease; R56.9 Unspecified convulsions; C80.1 Malignant (primary) neoplasm, unspecified; I25.10 Atherosclerotic heart disease of native coronary artery without angina pectoris; I25.2 Old myocardial infarction; E66.9 Obesity, unspecified; Z86.73 Personal history of transient ischemic attack (TIA), and cerebral infarction without residual deficits; Z86.718 Personal history of other venous thrombosis and embolism; Z95.1 Presence of aortocoronary bypass graft; Z87.891 Personal history of nicotine dependence
CPT/HCPCS: 70450; 71045; 80048; 80076; 83735; 84100; 85025; 93005; 96374; 96375; 96376; 99284; A4216; J2405